=== PATIENT | female | born 1940 | race African-American/Black ===

== ENCOUNTER 2019-10-09 09:16 | Outpatient (CLI) | payer MEDICARE, OTHER, SELFPAY ==
--- NOTE | ~2019-10-09 | US_ITS ---
US right upper quadrant INDICATION: Hepatitis C PROCEDURE: Realtime right upper abdominal ultrasound. COMPARISON: No prior studies for comparison. FINDINGS: Pancreatic duct is mildly dilated measuring 2.4 mm. Liver echotexture is normal without fo linda mass or intrahepatic biliary dilatation. There is normal directional flow in the portal vein. There are gallstones. Common bile duct measures 5 mm. No sonographic March's sign. Automated expos ure control and iterative reconstruction technique were employed. IMPRESSION: 1: Cholelithiasis. 2: Mild pancreatic ductal dilation, nonspecific. Reviewed, dictated and finalized at location A. IST
[2019-10-09 10:37] LABS: Hematocrit 26.6 % (37.0-47.0); Mean Corpuscular HGB Conc 30.1 g/dl (32-36); Mean Corpuscular Hemoglobin 24.9 pg (26-34); Mean Corpuscular Volume 82.9 fl (80-100); Mean Platelet Volume 11.1 fl (7.4-10.4); Platelet Count Result 201 k/mm3 (150-375); Red Blood Count 3.21 M/mm3 (4.2-5.4); White Blood Count 5.6 K/mm3 (4.5-10.0)
[2019-10-09 10:54] LABS: INR 1.1; Prothrombin Time 13.9 Seconds (11.1-14.7)
[2019-10-09 11:02] LABS: Iron 31 ug/dL (37-170)
[2019-10-09 11:14] LABS: Hepatitis B Surface Antigen Negative (Negative); Percent Iron Saturation 15 % (20-50)
[2019-10-09 11:30] LABS: Alanine Aminotransferase 14 U/L (4-35); Albumin Level 3.7 g/dL (3.5-5.1); Alkaline Phosphatase 101 U/L (38-126); Aspartate Amino Transferase 30 U/L (14-36); Bilirubin,Total 0.4 mg/dL (0.2-1.3); Blood Urea Nitrogen 24 mg/dL (7-17); Carbon Dioxide 24 mmol/L (22-30); Chloride 95 mmol/L (98-107); Estimated Glomerular Filt Rate 10; Free T4 Free Thyroxine 1.22 ng/mL (0.78-2.19); Glucose 88 mg/dL (65-105); HAV RESULT Negative (Negative); Potassium 4.1 mmol/L (3.4-5.0); Sodium 136 mmol/L (137-145)
[2019-10-09 11:31] LABS: HIV 1/2 Ab P24 Ag Result Negative (Negative); Hepatitis B Surface Anti Res Negative
[2019-10-11 18:54] LABS: Hepatitis C RNA, Quant PCR <15 IU/mL
[2019-10-11 18:55] LABS: Hepatitis C Viral RNA PCR <15 IU/mL
[2019-10-12 20:08] LABS: Hepatitis B Core Ab Total Nonreactive (Nonreactive)
== END 2019-10-09 09:17 | disposition home or self-care (01) ==
PROVIDERS: PCP Internal Medicine; Visit Provider Internal Medicine
DX: B19.20 Unspecified viral hepatitis C without hepatic coma (principal); K80.20 Calculus of gallbladder without cholecystitis without obstruction; N18.6 End stage renal disease; K86.9 Disease of pancreas, unspecified
CPT/HCPCS: 36415; 76705; 80053; 82105; 82248; 82728; 83540; 83550; 84439; 84443; 85027; 85610; 86038; 86235; 86703; 86704; 86706; 86709; 87340; 87522; G0432

== ENCOUNTER 2019-10-11 09:39 | Outpatient (CLI) | payer MEDICARE, OTHER, SELFPAY ==
[2019-10-29 13:03] LABS: Fibrosis Score 0.24
[2019-10-29 13:04] LABS: Fibrosis Stage F0-F1
== END 2019-10-11 09:40 | disposition home or self-care (01) ==
PROVIDERS: PCP Internal Medicine
DX: B19.20 Unspecified viral hepatitis C without hepatic coma (principal)
CPT/HCPCS: 36415; 81596

== ENCOUNTER 2019-10-22 09:46 | Emergency (ER) | payer MEDICARE, OTHER, SELFPAY ==
--- NOTE | 2019-10-22 10:08 | ED.ABDPAIN ---
HPI - Abdominal Pain General Stated Complaint: NOSE BLEED Time Seen by Provider: 10/22/19 09:48 Source: patient and EMS Mode of arrival: EMS Limitations: no limitations History of Present Illness HPI narrative: Patient is a 79-year-old female who presents to emergency department for evaluation of epistaxis that began this morning has been having some rhinorrhea patient notes on arrival she has no pain denies dyspnea or other complaints denies any anticoagulant use patient on arrival notes that the bleeding has stopped and is resting comfortably in the room in no distress Related Data Home Medications Medication Instructions Recorded Confirmed B complex with C 20-folic acid 1 cap PO DAILY 07/10/19 07/10/19 [Mynephrocaps] aspirin 81 mg PO DAILY 07/10/19 07/10/19 calcitriol 0.25 mcg PO 3XW 07/10/19 07/10/19 calcium acetate(phosphat bind) 667 mg PO TID 07/10/19 07/10/19 carvedilol [Coreg] 6.25 mg PO BID 07/10/19 07/10/19 folic acid-B complex,C no.17 1 tablet PO DAILY 07/10/19 07/10/19 levothyroxine 100 mcg PO DAILY 07/10/19 07/10/19 loratadine [Claritin] 10 mg PO DAILY PRN 07/10/19 07/10/19 simvastatin 40 mg PO HS 07/10/19 07/10/19 Allergies Allergy/AdvReac Type Severity Reaction Status Date / Time codeine Allergy Unknown Unknown Verified 07/10/19 11:34 morphine AdvReac Unknown Itching Verified 07/10/19 11:34 Review of Systems Review of Systems: All systems reviewed & are unremarkable except as noted in HPI and below PMFSH Past Medical History Medical History Anemia Arthritis CAD (coronary artery disease) Cataract, right eye CHF (congestive heart failure) Dialysis patient Diverticulitis DM (diabetes mellitus) Fibroids GI bleed History of angina History of heart attack History of rectal polyps Hypercholesteremia Hypertension Hypothyroid Macular degeneration lt Personal history of kidney cancer Renal disease Ulcer Surgical History Surgical History History of appendectomy History of cataract surgery rt History of hysterectomy History of nephrectomy, left History of total bilateral knee replacement Hx of cardiac cath with stent placement Exam Narrative: Exam Narrative: GENERAL: Well-appearing, well-nourished, and in no acute distress. HEAD: Normocephalic, atraumatic. EYES: PERRLA and EOMI. ENT: Nares clear, patient with rhinorrhea with resolved epistaxis. Mucous membranes moist. Oropharynx without tonsillar hypertrophy exudate or other lesions. CHEST: Clear to auscultation. No respiratory distress. No wheezes rales or rhonchi HEART: Regular rate and rhythm. No murmur heard. SKIN: Warm, dry, no rash. NEURO: No focal deficits. Alert and oriented x3. Cranial nerves II through XII grossly intact PSYCH: Normal mood and affect. Procedures Epistaxis Control bilateral: Epistaxis Control Date: 10/22/19 Epistaxis Control Time: 10:11 Time Out Performed: Yes Nose Prepped With: oxymetazoline Direct Inspection: yes Clots Removed by: blowing nose Cautery Used: none Device Inserted: other Patient Tolerated Procedure: well Epistaxis Control Narrative: Q-tip was used to rub the mucous membranes without any bleeding occurring patient then had Afrin-soaked cotton balls placed in the nasal passages with resolution of epistaxis Course Course Emergency Course: Patient in the room in no distress aware of case findings treatment plan and diagnosis Consultations Consultation #1: Discussed case with director translational who will follow patient in clinic and would like the patient to be sent over for dialysis Date: 10/22/19 MDM - Abdominal Pain MDM Narrative Medical decision making narrative: Patient in the room in no distress felt appropriate for discharge to dialysis Discharge Plan Discharge Clinical Impression: Acute anterior epistaxis
[2019-10-22 10:21] VITALS: BP 144/76; PULSE 64; RESP 16; TEMP 36.6; O2SAT 99
[2019-10-22 10:35] VITALS: BP 136/75; PULSE 72; RESP 16; O2SAT 99
== END 2019-10-22 10:45 | disposition home or self-care (01) ==
PROVIDERS: Emergency Provider Emergency Medicine; PCP Internal Medicine
DX: R04.0 Epistaxis (principal); M19.90 Unspecified osteoarthritis, unspecified site; I25.10 Atherosclerotic heart disease of native coronary artery without angina pectoris; I50.9 Heart failure, unspecified; I11.0 Hypertensive heart disease with heart failure; I25.2 Old myocardial infarction; E11.22 Type 2 diabetes mellitus with diabetic chronic kidney disease; I13.2 Hypertensive heart and chronic kidney disease with heart failure and with stage 5 chronic kidney disease, or end stage renal disease; N18.6 End stage renal disease; E78.00 Pure hypercholesterolemia, unspecified; E03.9 Hypothyroidism, unspecified; H35.30 Unspecified macular degeneration; Z85.528 Personal history of other malignant neoplasm of kidney; Z98.41 Cataract extraction status, right eye; Z90.5 Acquired absence of kidney; Z96.653 Presence of artificial knee joint, bilateral; Z95.5 Presence of coronary angioplasty implant and graft; Z79.82 Long term (current) use of aspirin; Z99.2 Dependence on renal dialysis
CPT/HCPCS: 30901; 99283; A9270

== ENCOUNTER 2020-01-12 17:28 | Emergency (ER) | payer MEDICARE, OTHER, SELFPAY ==
[2020-01-12] VITALS (37 sets, daily range): BP systolic 95–136; BP diastolic 49–67; PULSE 70–97; RESP 13–26; TEMP 36.9; O2SAT 94–100
--- NOTE | ~2020-01-12 | CT_ITS ---
EXAMINATION: CT soft tissue neck wo con DATE: 01/12/2020 22:52 INDICATION: Sore throat. Neck mass. TECHNIQUE: Computed tomography (CT) of the neck was performed without intravenous contrast. Automated exposure control and iterative reconstruction technique were employed. The dose-length product was 5 64.41 mGy-cm. COMPARISON: Neck CT 08/18/2006 FINDINGS: There is mild emphysema. There are likely changes of right ocular lens replacement surgery. There is a mucous retention cyst versus polyp in right maxillary sinus. Right submandibular gland is enlarged with surrounding fat stranding. There are multiple sialoliths in right submandibular gland and the duct for right submandibular gland measuring up to 2.0 x 1.5 cm. There are changes of right h emithyroidectomy. There is a stent in right subclavian and brachiocephalic veins. There are no pathol ogically enlarged lymph nodes. There is moderate cervical spondylosis. IMPRESSION: 1. Multiple stones in right submandibular gland and the duct for right submandibular gland with siala denitis. Reviewed, dictated and finalized at location A. IMPRESSION: 1. Multiple stones in right submandibular gland and the duct for right submandi bular gland with sialadenitis.
--- NOTE | 2020-01-12 19:20 | ED.GENADULT ---
HPI - General Adult General Chief complaint: Unspecified Stated complaint: sore throat, sent from urgent care Time Seen by Provider: 01/12/20 19:03 History of Present Illness HPI narrative: Pain and swelling to the right side of the face and neck for about the past week. Getting worse. Causes pain with swallowing. Prescribed antibiotics by her PCP. No improvement. No fever. Related Data Home Medications Medication Instructions Recorded Confirmed B complex with C 20-folic acid 1 cap PO DAILY 07/10/19 07/10/19 [Mynephrocaps] aspirin 81 mg PO DAILY 07/10/19 07/10/19 calcitriol 0.25 mcg PO 3XW 07/10/19 07/10/19 carvedilol [Coreg] 6.25 mg PO BID 07/10/19 07/10/19 folic acid-B complex,C no.17 1 tablet PO DAILY 07/10/19 07/10/19 levothyroxine 100 mcg PO DAILY 07/10/19 07/10/19 calcium acetate PO 01/12/20 doxycycline hyclate 01/12/20 gabapentin 01/12/20 pravastatin 01/12/20 Allergies Allergy/AdvReac Type Severity Reaction Status Date / Time codeine Allergy Unknown Unknown Verified 01/12/20 18:25 morphine AdvReac Unknown Itching Verified 01/12/20 18:25 Review of Systems Review of Systems: All systems reviewed & are unremarkable except as noted in HPI and below Constitutional: Constitutional: Denies fever(s) and Denies weakness ENT: Reports sore throat Cardiovascular: Cardiovascular: Denies chest pain Respiratory: Respiratory: Denies dyspnea Gastrointestinal: Gastrointestinal: Denies nausea and Denies vomiting Integumentary/Breasts: Skin/Breast: Denies erythema and Denies rash PMFSH Past Medical History Medical History Anemia Arthritis CAD (coronary artery disease) Cataract, right eye CHF (congestive heart failure) Dialysis patient Diverticulitis DM (diabetes mellitus) Fibroids GI bleed History of angina History of heart attack History of rectal polyps Hypercholesteremia Hypertension Hypothyroid Macular degeneration lt Personal history of kidney cancer Renal disease Ulcer Surgical History Surgical History History of appendectomy History of cataract surgery rt History of hysterectomy History of nephrectomy, left History of total bilateral knee replacement Hx of cardiac cath with stent placement Social History Social History Gender identity (if verbalized by the patient): Female Exam Const: General: no acute distress and alert Orientation/consciousness: patient oriented x3 HENMT: Other: Solid mass to right anterior neck. Moderate tenderness. No erythema. Resp: Effort & Inspection: normal respiratory effort Auscultation: clear to auscultation bilaterally Cardio: Rate: regular rate Rhythm: regular rhythm Skin: General skin exam: normal color Rashes: no rashes Neuro: General: patient oriented x3 and moves all extremities Course Vital Signs Vital signs: Vital Signs Pulse Oximetry 97 01/12/20 17:40 Temperature 36.9 C 01/12/20 17:45 Pulse Rate 86 01/13/20 01:19 Respiratory Rate 17 01/13/20 01:19 Blood Pressure 123/68 01/13/20 01:19 Pulse Oximetry 99 01/13/20 01:19 Medical Decision Making MDM Narrative Medical decision making narrative: Multiple large sialoliths with sialadenitis. Unlikely infection, but I will have her continue the antibiotics incase this is playing a role. I think it is unlikely to resolve spontaneously. Unfortunately we have no ENT on-call. I contacted the individual on-call for her PCP. They will set up ENT follow-up. Differential Diagnosis Differential Diagnosis: dental abscess, cancer, sialolith, other Medical Records Medical records reviewed: Yes I reviewed the patient's medical records. Vital Signs Vital Signs: Vital Signs Pulse Oximetry 97 01/12/20 17:40 Temperature 36.9 C 01/12/20 17:45 Pulse Rate 86 01/13/20 01:19 Respirato
[2020-01-12 21:56] LABS: Basophils Percent Auto 0.3 % (0.2-1.2); Eosinophils Absolute Auto 0.2 K/mm3 (0-0.3); Eosinophils Percent Auto 3.1 % (0-4.4); Hematocrit 32.8 % (37.0-47.0); Hemoglobin 9.8 g/dL (12.0-15.0); Immature Granulocyte Absolute 0.03 K/mm3 (0.00-0.031); Immature Granulocyte Percent A 0.4 % (0-0.5); Lymphocytes Percent Auto 13.5 % (18.3-44.2); Mean Corpuscular HGB Conc 29.9 g/dl (32-36); Mean Corpuscular Hemoglobin 25.9 pg (26-34); Mean Corpuscular Volume 86.5 fl (80-100); Mean Platelet Volume 10.4 fl (7.4-10.4); Monocytes Absolute Auto 1.2 K/mm3 (0.1-0.6); Monocytes Percent Auto 16.2 % (2.6-8.5); Neutrophils Absolute Auto 4.9 K/mm3 (1.3-6.7); Neutrophils Percent Auto 66.5 % (45.5-73.1); Nucleated Red Blood Cells Perc 0.3 % (0.0-0.2); Platelet Count Result 183 k/mm3 (150-375); Red Blood Count 3.79 M/mm3 (4.2-5.4); Red Cell Distribution Width 17.1 % (11.5-14.5); White Blood Count 7.4 K/mm3 (4.5-10.0)
[2020-01-12 22:07] LABS: Blood Urea Nitrogen 18 mg/dL (7-17); Calcium 7.2 mg/dL (8.4-10.2); Carbon Dioxide 29 mmol/L (22-30); Chloride 100 mmol/L (98-107); Estimated CRCL calculation 11 ml/min; Estimated Glomerular Filt Rate 12; Glucose 92 mg/dL (65-105); Potassium 3.4 mmol/L (3.4-5.0); Sodium 136 mmol/L (137-145)
[2020-01-12 22:15] LABS: Anisocytosis 2+ (NORMAL); Hypochromasia 1+ (NORMAL); Platelet Estimate Adequate (Adequate)
[2020-01-13] MEDS: TRAMADOL HCL 50 MG TABLET PO (01:04)
[2020-01-13 01:19] VITALS: BP 123/68; PULSE 86; RESP 17; O2SAT 99
== END 2020-01-13 01:28 | disposition home or self-care (01) ==
PROVIDERS: Emergency Provider Emergency Medicine
DX: K11.20 Sialoadenitis, unspecified (principal); K11.5 Sialolithiasis; D64.9 Anemia, unspecified; M19.90 Unspecified osteoarthritis, unspecified site; I25.10 Atherosclerotic heart disease of native coronary artery without angina pectoris; I50.9 Heart failure, unspecified; E11.22 Type 2 diabetes mellitus with diabetic chronic kidney disease; I13.2 Hypertensive heart and chronic kidney disease with heart failure and with stage 5 chronic kidney disease, or end stage renal disease; N18.6 End stage renal disease; Z99.2 Dependence on renal dialysis; I25.2 Old myocardial infarction; E78.00 Pure hypercholesterolemia, unspecified; H35.30 Unspecified macular degeneration; E03.9 Hypothyroidism, unspecified; Z98.41 Cataract extraction status, right eye; Z96.653 Presence of artificial knee joint, bilateral; Z90.5 Acquired absence of kidney; Z95.5 Presence of coronary angioplasty implant and graft; Z79.82 Long term (current) use of aspirin
CPT/HCPCS: 36415; 70490; 80048; 85025; 87081; 87880; 99284; A9270

== ENCOUNTER 2020-06-03 08:07 | Emergency (ER) | payer MEDICARE, OTHER, SELFPAY ==
--- NOTE | ~2020-06-03 | XR_ITS ---
EXAMINATION: XR lumbar spine min 4V DATE: 06/03/2020 09:59 INDICATION: Low back pain. TECHNIQUE: 5 views of lumbar spine were obtained. COMPARISON: Lumbar spine radiographs 01/07/2008 FINDINGS: There is 5 mm anterolisthesis of L4 on L5 at 3 mm retrolisthesis of L2 on L3. There is 8 de grees dextrocurvature of lumbar spine. There is severely decreased disc height at L1-L2 and moderatel y decreased disc height at L4-L5. There is multilevel severe facet joint osteoarthritis. There are br idging endplate osteophytes at multiple levels in the spine, consistent with diffuse idiopathic skele andre hyperostosis (DISH). There are surgical clips in left abdomen. IMPRESSION: 1. Severe lumbar spondylosis, worsened from 01/07/2008. 2. DISH. Reviewed, dictated and finalized at location A.
[2020-06-03 08:06] VITALS: BP 150/73; PULSE 76; RESP 10; TEMP 36.5; O2SAT 99
--- NOTE | 2020-06-03 10:07 | ED.GENADULT ---
HPI - General Adult General Chief complaint: Extremity Injury, Lower Stated complaint: PAIN DOWN BOTH LEGS Time Seen by Provider: 06/03/20 08:44 Source: patient Mode of arrival: ambulatory Limitations: no limitations History of Present Illness HPI narrative: Patient is a 79-year-old female who presents to emergency department for evaluation of low back pain radiating to the bilateral thighs has been present now for roughly 5 days patient denies injury or trauma. Patient notes pain in the bilateral buttocks. Patient denies similar occurrence or other complaints. Patient presents in no distress has been taking tramadol with some improvement. Related Data Home Medications Medication Instructions Recorded Confirmed B complex with C 20-folic acid 1 cap PO DAILY 07/10/19 07/10/19 [Mynephrocaps] aspirin 81 mg PO DAILY 07/10/19 07/10/19 calcitriol 0.25 mcg PO 3XW 07/10/19 07/10/19 carvedilol [Coreg] 6.25 mg PO BID 07/10/19 07/10/19 folic acid-B complex,C no.17 1 tablet PO DAILY 07/10/19 07/10/19 levothyroxine 100 mcg PO DAILY 07/10/19 07/10/19 calcium acetate PO 01/12/20 doxycycline hyclate 01/12/20 gabapentin 01/12/20 pravastatin 01/12/20 Allergies Allergy/AdvReac Type Severity Reaction Status Date / Time codeine Allergy Unknown Unknown Verified 06/03/20 09:54 morphine AdvReac Unknown Itching Verified 06/03/20 09:54 Review of Systems Review of Systems: All systems reviewed & are unremarkable except as noted in HPI and below PMFSH Past Medical History Medical History (Updated 06/03/20 @ 10:35 by Eugene Greenberg PA-C) Anemia Arthritis CAD (coronary artery disease) Cataract, right eye CHF (congestive heart failure) Dialysis patient Diverticulitis DM (diabetes mellitus) Fibroids GI bleed History of angina History of heart attack History of rectal polyps Hypercholesteremia Hypertension Hypothyroid Macular degeneration lt Personal history of kidney cancer Renal disease Ulcer Surgical History Surgical History History of appendectomy History of cataract surgery rt History of hysterectomy History of nephrectomy, left History of total bilateral knee replacement Hx of cardiac cath with stent placement Social History Social History Gender identity (if verbalized by the patient): Female Exam Narrative: Exam Narrative: GENERAL: Well-appearing, obese, and in no acute distress. HEAD: Normocephalic, atraumatic. EYES: PERRLA and EOMI. ENT: Nares clear, no rhinorrhea or epistaxis. Mucous membranes moist. CHEST: Clear to auscultation. No respiratory distress. No wheezes rales or rhonchi HEART: Regular rate and rhythm. No murmur heard. Normal peripheral pulses. ABDOMEN: Soft, nontender, nondistended EXTREMITIES: Normal range of motion. 2+ edema to the lower extremities. Tenderness over the bilateral SI joints no midline lumbar tenderness no deformities noted SKIN: Warm, dry, no rash. NEURO: No focal deficits. Alert and oriented x3. Cranial nerves II through XII grossly intact. Motor and sensory intact and symmetrical in the extremities PSYCH: Normal mood and affect. Course Course Emergency Course: Patient will be referred back to primary care for what is likely radicular lumbar pain that is felt appropriate for outpatient reevaluation patient will be given medications in the meantime to take for her discomfort while she waits to set up her primary care follow-up Vital Signs Vital signs: Vital Signs Temperature 97.7 F 06/03/20 08:06 Pulse Rate 76 06/03/20 08:06 Respiratory Rate 10 L 06/03/20 08:06 Blood Pressure 150/73 H 06/03/20 08:06 Pulse Oximetry 99 06/03/20 08:06 Temperature 97.7 F 06/03/20 08:06 Pulse Rate 76 06/03/20 08:06 Respiratory Rate 10 L 06/03/20 08:06 Blood Pressure 150/73 H 06/03/20 08:06 Pulse Oximetry 99 06/03/20 08:06
[2020-06-03] MEDS: ACETAMINOPHEN 500 MG TABLET 1000 MG PO (10:36)
[2020-06-03] MEDS: LIDOCAINE 5% PATCH 1 PATCH TRANSDERM (10:37)
[2020-06-03 11:30] VITALS: BP 120/62; PULSE 77; RESP 18; RESP 20; O2SAT 99
[2020-06-03 11:32] VITALS: BP 120/62; PULSE 77; RESP 18; O2SAT 99
== END 2020-06-03 11:33 | disposition home or self-care (01) ==
PROVIDERS: Emergency Provider Emergency Medicine; PCP Internal Medicine
DX: M54.16 Radiculopathy, lumbar region (principal); Z86.2 Personal history of diseases of the blood and blood-forming organs and certain disorders involving the immune mechanism; I25.10 Atherosclerotic heart disease of native coronary artery without angina pectoris; I50.9 Heart failure, unspecified; E11.9 Type 2 diabetes mellitus without complications; I25.2 Old myocardial infarction; Z87.19 Personal history of other diseases of the digestive system; E78.00 Pure hypercholesterolemia, unspecified; I11.0 Hypertensive heart disease with heart failure; E03.9 Hypothyroidism, unspecified; Z85.528 Personal history of other malignant neoplasm of kidney; H35.30 Unspecified macular degeneration; N28.9 Disorder of kidney and ureter, unspecified; Z90.5 Acquired absence of kidney; Z98.41 Cataract extraction status, right eye; Z96.653 Presence of artificial knee joint, bilateral; Z79.82 Long term (current) use of aspirin
CPT/HCPCS: 72110; 99283; A9270

== ENCOUNTER 2020-08-25 06:36 | Emergency (ER) | payer MEDICARE, OTHER, SELFPAY ==
[2020-08-25] VITALS (10 sets, daily range): BP systolic 157–192; BP diastolic 64–70; PULSE 68–72; RESP 12–18; TEMP 36.3; O2SAT 99–100
--- NOTE | ~2020-08-25 | CT_ITS ---
EXAMINATION: CT lumbar spine wo con DATE: 08/25/2020 07:39 INDICATION: Low back pain after fall TECHNIQUE: Computed tomography (CT) of the lumbar spine was performed without intravenous contrast. T he dose-length product was 1258.10 mGy-cm. Automated exposure control and iterative reconstruction te jacques were employed. COMPARISON: None FINDINGS: Partial fusion at L1-2. There is disc narrowing at all lumbar levels with multilevel vacuum phenomenon. There is advanced multilevel facet hypertrophy. There is atherosclerosis of the aorta an d mesenteric vessels. There is multilevel neural foraminal narrowing. No acute sacral fracture identi fied. No acute fracture of the lumbar spine. IMPRESSION: 1. No acute fracture. 2: Severe lumbar spondylosis with multilevel neural foraminal narrowing. Reviewed, dictated and finalized at location A. 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
--- NOTE | ~2020-08-25 | CT_ITS ---
EXAMINATION: CT pelvis wo con DATE: 08/25/2020 07:39 INDICATION: Status post fall. Pelvic pain. TECHNIQUE: Computed tomography (CT) of the pelvis was performed without intravenous contrast. The dos e-length product was 779.37 mGy-cm. Automated exposure control and iterative reconstruction technique were employed. COMPARISON: None FINDINGS: Pelvic rings are intact. There is moderate lower lumbar spondylosis. There are degenerative changes of the sacroiliac joints and hips. No acute fracture or traumatic malalignment. There is ext ensive vascular calcification. There is abnormal soft tissue and gas involving the posterior soft tis sues posterior to the rectum. Ulcer/infection cannot be excluded. These findings are best seen on ser ies 4 images 58-72. IMPRESSION: 1. No acute fracture. 2: Abnormal subcutaneous soft tissue posterior to the rectum containing heterogeneous high density ma terial and gas. Consider decubitus ulcer/infection. Correlate clinically. Acute hematoma is also cons ideration. Reviewed, dictated and finalized at location A. 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 No acute fracture. 2: Abnormal subcutaneous soft tissue posterior to the rectum containing heterog eneous high density material and gas. Consider decubitus ulcer/infection. Corre late clinically. Acute hematoma is also consideration.
--- NOTE | 2020-08-25 07:10 | PC.NURSE ---
Report to ISRAEL Collazo, to continue care.
--- NOTE | 2020-08-25 07:11 | ED.FALL ---
HPI - Fall General Chief Complaint: Fall Stated Complaint: FALL/SUNDAY Time Seen by Provider: 08/25/20 07:05 History of Present Illness HPI Narrative: 80 yo female with multiple medical problems presents to the ED for lower back pain. She reports that she had a fall 2 days ago when trying to get off of the toilet. She called EMS and required a lift assist and was having some pain in the low back and buttock at that time, but did not want transport. Since then the pain has gotten worse and she is not able to et herself up from sitting. The pain in primarily in the buttocks bilaterally. Radiates down the back of the thighs. No weakness. She reports chronic BLE numbness, which is unchanged. She did not hit her head. Related Data Home Medications Medication Instructions Recorded Confirmed B complex with C 20-folic acid 1 cap PO DAILY 07/10/19 07/10/19 [Mynephrocaps] aspirin 81 mg PO DAILY 07/10/19 07/10/19 calcitriol 0.25 mcg PO 3XW 07/10/19 07/10/19 carvedilol [Coreg] 6.25 mg PO BID 07/10/19 07/10/19 folic acid-B complex,C no.17 1 tablet PO DAILY 07/10/19 07/10/19 levothyroxine 100 mcg PO DAILY 07/10/19 07/10/19 calcium acetate PO 01/12/20 doxycycline hyclate 01/12/20 gabapentin 01/12/20 pravastatin 01/12/20 Allergies Allergy/AdvReac Type Severity Reaction Status Date / Time morphine AdvReac Unknown Itching Verified 08/25/20 06:48 Review of Systems Review of Systems: All systems reviewed & are unremarkable except as noted in HPI and below Constitutional: Constitutional: Denies fever(s) and Denies weakness Cardiovascular: Cardiovascular: Denies chest pain Respiratory: Respiratory: Denies dyspnea Gastrointestinal: Gastrointestinal: Denies abdominal pain, Denies diarrhea, Denies nausea and Denies vomiting Genitourinary: Genitourinary: Denies hematuria and Denies dysuria Musculoskeletal: Musculoskeletal: Reports back pain Neurologic: Denies confusion, Denies dizziness, Denies headache(s), Reports numbness and Denies weakness PMF Past Medical History Medical History Anemia Arthritis CAD (coronary artery disease) Cataract, right eye CHF (congestive heart failure) Dialysis patient Diverticulitis DM (diabetes mellitus) Fibroids GI bleed History of angina History of heart attack History of rectal polyps Hypercholesteremia Hypertension Hypothyroid Macular degeneration lt Personal history of kidney cancer Renal disease Ulcer Surgical History Surgical History History of appendectomy History of cataract surgery rt History of hysterectomy History of nephrectomy, left History of total bilateral knee replacement Hx of cardiac cath with stent placement Social History Social History Gender identity (if verbalized by the patient): Female Exam Const: General: no acute distress and alert Orientation/consciousness: patient oriented x3 HENMT: Head: normal to inspection, no contusions and no lacerations Neck: Neck: normal visual inspection Resp: Effort & Inspection: normal respiratory effort Auscultation: clear to auscultation bilaterally Cardio: Rate: regular rate Rhythm: regular rhythm GI: GI Palp: Yes Soft to palpation and No Tenderness to palpation present (GI) Back/Spine/Pelvis: Other: Exam limited due to positioning Skin: General skin exam: normal color Wounds: no wounds Neuro: General: patient oriented x3, moves all extremities, no focal motor deficits and CN's II-XI intact bilaterally Speech: normal speech Extrem: General: normal to inspection and no edema Course Vital Signs Vital signs: Vital Signs Temperature 36.3 C L 08/25/20 06:38 Pulse Rate 69 08/25/20 06:38 Respiratory Rate 18 08/25/20 06:38 Blood Pressure 165/69 H 08/25/20 06:38 Pulse Oximetry 100 08/25/20 06:38 Temper
[2020-08-25] MEDS: HYDROcodone/acetaminophen (*CRX) 5-325 MG TABLET 1 TAB PO (07:57)
--- NOTE | 2020-08-25 10:06 | PCCCNOTE ---
Patient and daughter assisting placement for rehab. Initially would accept any who were accepting patient at this time. [facility] and [facility] in [place] able to accept but patient and daughter refused both places. Clinicals and demographics sent to [facility]
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
== END 2020-08-25 10:34 | disposition home or self-care (01) ==
PROVIDERS: Emergency Provider Emergency Medicine; PCP Internal Medicine
DX: S30.0XXA Contusion of lower back and pelvis, initial encounter (principal); M19.90 Unspecified osteoarthritis, unspecified site; I25.10 Atherosclerotic heart disease of native coronary artery without angina pectoris; I50.9 Heart failure, unspecified; E11.9 Type 2 diabetes mellitus without complications; I25.2 Old myocardial infarction; E78.00 Pure hypercholesterolemia, unspecified; I11.0 Hypertensive heart disease with heart failure; E03.9 Hypothyroidism, unspecified; H35.30 Unspecified macular degeneration; Z85.528 Personal history of other malignant neoplasm of kidney; Z99.2 Dependence on renal dialysis; Z79.82 Long term (current) use of aspirin; Z98.41 Cataract extraction status, right eye; Z90.5 Acquired absence of kidney; Z96.653 Presence of artificial knee joint, bilateral; Z95.5 Presence of coronary angioplasty implant and graft; W18.11XA Fall from or off toilet without subsequent striking against object, initial encounter
CPT/HCPCS: 72131; 72192; 99284; A9270

== ENCOUNTER 2021-07-03 16:11 | Inpatient (IN) | payer MEDICARE, OTHER, SELFPAY ==
[2021-07-03] VITALS (31 sets, daily range): BP systolic 103–164; BP diastolic 44–75; PULSE 58–78; RESP 13–33; TEMP 36.1–36.4; O2SAT 100; BMI 41.0
--- NOTE | 2021-07-03 16:24 | ED.GENADULT ---
HPI - General Adult General Chief complaint: GI Bleed Stated complaint: rectal bleeding Source: RN notes reviewed History of Present Illness HPI narrative: Patient presents emergency department from home for rectal bleeding. Patient states she had 2 episodes today of maroon rectal bleeding with clots. She states that with this she has had no fevers or chills no weakness no abdominal pain nausea vomiting or any other symptoms states she is on any blood thinners except when she receives with dialysis and she receives dialysis Sunday and Sunday by Dr. Mathews with last dialysis on Sunday states she did have 1 episode of rectal bleeding before in past and was admitted to the hospital with a blood transfusion Related Data Home Medications Medication Instructions Recorded Confirmed B complex with C 20-folic acid 1 cap PO DAILY 07/10/19 07/10/19 [Mynephrocaps] aspirin 81 mg PO DAILY 07/10/19 07/10/19 calcitriol 0.25 mcg PO 3XW 07/10/19 07/10/19 carvedilol [Coreg] 6.25 mg PO BID 07/10/19 07/10/19 folic acid-B complex,C no.17 1 tablet PO DAILY 07/10/19 07/10/19 levothyroxine 100 mcg PO DAILY 07/10/19 07/10/19 calcium acetate PO 01/12/20 doxycycline hyclate 01/12/20 gabapentin 01/12/20 pravastatin 01/12/20 Allergies Allergy/AdvReac Type Severity Reaction Status Date / Time morphine AdvReac Unknown Itching Verified 07/03/21 16:53 Review of Systems Review of Systems: Gen.: Denies fevers or chills ENT: Denies congestion Respiratory: Denies shortness of breath or cough CV: Denies chest pain or palpitations GI: D see HPI reports chronic renal failure dialysis Musculoskeletal: Denies back pain or muscle pain Neuro: Denies numbness, tingling, weakness or focal weakness Skin: Denies rash Except as documented, all other systems reviewed and negative [facility] Past Medical History Medical History (Updated 07/03/21 @ 19:19 by Antwan Betancourt DO) Anemia Arthritis CAD (coronary artery disease) Cataract, right eye CHF (congestive heart failure) Dialysis patient Diverticulitis DM (diabetes mellitus) Fibroids GI bleed History of angina History of heart attack History of rectal polyps Hypercholesteremia Hypertension Hypothyroid Macular degeneration lt Personal history of kidney cancer Renal disease Ulcer Surgical History Surgical History History of appendectomy History of cataract surgery rt History of hysterectomy History of nephrectomy, left History of total bilateral knee replacement Hx of cardiac cath with stent placement Social History Social History (Updated 07/03/21 @ 16:25 by Antwan Betancourt DO) Smoking status: Never smoker Gender identity (if verbalized by the patient): Female Exam Narrative: APPEARANCE: No acute distress, nontoxic, resting in bed EYES: EOMI HEENT: Normocephalic, atraumatic, OMM RESPIRATORY: No respiratory distress Clear to auscultation bilaterally with no rhonchi wheezing or rales. CARDIOVASCULAR: Regular rate and rhythm without murmurs rubs or gallops. ABDOMINAL: Soft, nontender, nondistended, no rebound or guarding Rectal: Large amount of dark maroon blood with clots in rectum and rectal vault Stage IV sacral decubitus ulcer MUSCULOSKELETAl: Moves all extremities. No clubbing, cyanosis or edema. NEURO: Awake and alert. Following commands, speech normal, no focal deficits SKIN:: Warm, dry. No rashes lesions or abrasions PSYCHIATRIC: Normal affect/mood, Course Course Emergency Course: Patient states she is currently being treated for sacral decubitus ulcer by wound care Patient with large bloody bowel movement in the ED Reviewed old records Discussed with Dr. Vitale presentation work-up agrees with consult at this time Discussed with AMANDEEP Schneider for Dr. Little presentation work-up agrees with admission at this time Discussed with patient and family results of workup and diagnosis. Discus
[2021-07-03 17:28] LABS: Basophils Percent Auto 0.5 % (0.2-1.2); Eosinophils Absolute Auto 0.2 K/mm3 (0-0.3); Eosinophils Percent Auto 3.9 % (0-4.4); Hematocrit 32.2 % (37.0-47.0); Hemoglobin 9.9 g/dL (12.0-15.0); Immature Granulocyte Absolute 0.02 K/mm3 (0.00-0.031); Immature Granulocyte Percent A 0.3 % (0-0.5); Lymphocytes Absolute Auto 1.18 K/mm3 (0.9-3.2); Mean Corpuscular HGB Conc 30.7 g/dl (32-36); Mean Corpuscular Hemoglobin 27.2 pg (26-34); Mean Corpuscular Volume 88.5 fl (80-100); Mean Platelet Volume 11.3 fl (7.4-10.4); Monocytes Absolute Auto 0.8 K/mm3 (0.1-0.6); Monocytes Percent Auto 13.6 % (2.6-8.5); Neutrophils Absolute Auto 3.6 K/mm3 (1.3-6.7); Neutrophils Percent Auto 61.7 % (45.5-73.1); Nucleated Red Blood Cells Perc 0.3 % (0.0-0.2); Platelet Count Result 168 k/mm3 (150-375); Red Blood Count 3.64 M/mm3 (4.2-5.4); Red Cell Distribution Width 16.4 % (11.5-14.5); White Blood Count 5.9 K/mm3 (4.5-10.0)
[2021-07-03 17:33] LABS: INR 1.2; Partial Thromboplastin Time 30.3 SECONDS (22.3-36.8); Prothrombin Time 14.6 Seconds (11.1-14.7)
[2021-07-03 17:37] LABS: Alanine Aminotransferase 12 U/L (4-35); Albumin Level 3.8 g/dL (3.5-5.1); Alkaline Phosphatase 95 U/L (38-126); Anion Gap 13 mmol/L (8-16); Aspartate Amino Transferase 28 U/L (14-36); Bilirubin,Total 0.4 mg/dL (0.2-1.3); Blood Urea Nitrogen 50 mg/dL (7-17); Calcium 6.9 mg/dL (8.4-10.2); Carbon Dioxide 27 mmol/L (22-30); Chloride 99 mmol/L (98-107); Estimated CRCL calculation 7 ml/min; Estimated Glomerular Filt Rate 6; Glucose 117 mg/dL (65-110); Potassium 4.8 mmol/L (3.4-5.0); Sodium 139 mmol/L (137-145)
[2021-07-03 18:14] LABS: Lactic Acid Reflex 1.1 mmol/L (0.7-2.1)
--- NOTE | 2021-07-03 19:16 | PC.NURSE ---
Addendum entered by Mara Banda RN 07/03/21 19:18: Right upper arm dialysis graft. MWF schedule. +thrill. +bruit. Original Note: Pt reports started having rectal bleeding dark red blood approx. 0300. Lives at [facility]. Reports hx of blood transfusion. c/o chronic back pain. Uses a walker and wheelchair at facility.
--- NOTE | 2021-07-03 20:00 | PM.IMHP ---
H&P: HPI History of Present Illness Date/Time: 07/03/21 20:00 Chief Complaint: Rectal bleed. Narrative: This is an 80 year old female past medical history significant for hypertension, coronary artery disease, end-stage renal disease on hemodialysis Sunday and Fridays, congestive heart failure, diabetes mellitus, diverticulosis, arthritis, patient resides at [facility]. Patient presented today to the emergency room after she had an episode of rectal bleed in the morning when she woke up noticed red blood in the bed padding apparently patient went to [facility] and had another episode while there of rectal bleed EMS was called and patient was brought to the emergency room. The time of my visit patient was still having rectal bleed however patient denied any lightheadedness, dizziness or shortness of breath ,chest pain, fatigue ,syncope or near syncope, no palpitations, no fevers, no chills, no rigors, no cough, no sputum production, no nausea, no vomiting ,no abdominal pain, no hematemesis, no melena, no weight loss. S states that she has been her usual state of health. Preliminary workup initial hemoglobin of 9.8 and hematocrit of 32.8, creatinine 7.4, BUN 50. Decision has been made to admit the patient for further evaluation management and treatment. Review of Systems Review of Systems: Rectal bleed Constitutional: Constitutional: Denies body ache(s), Denies chills, Denies fatigue, Denies fever(s), Denies lethargy, Denies poor appetite and Denies weakness Comments: No weight loss. Eyes: Eyes: Denies change in vision ENT: Denies dysphagia, Denies epistaxis, Denies nasal congestion, Denies nasal discharge, Denies nasal obstruction and Denies odynophagia Cardiovascular: Cardiovascular: Reports pedal edema, Denies irregular heart rhythm, Reports leg edema, Denies lightheadedness, Denies radiating jaw, neck or arm pain, Denies palpitations, Denies dyspnea, Denies dyspnea on exertion and Denies orthopnea Respiratory: Respiratory: Denies change in phlegm color, Denies cough, Denies excessive phlegm production and Denies dyspnea Gastrointestinal: Gastrointestinal: Denies melena, Reports hematochezia, Denies coffee ground emesis, Denies dyspepsia, Denies heartburn, Denies nausea and Denies vomiting Genitourinary: Comments: States that does not make much urine Musculoskeletal: Musculoskeletal: Reports back pain and Reports limited range of motion Integumentary/Breasts: Skin/Breast: Denies rash Neurologic: Denies vertigo, Denies dizziness, Denies syncope, Denies focal weakness and Denies Sensory deficit (Neuro) Psychiatric: Psychiatric: Reports no additional psychiatric complaints and Reports as per HPI Endocrine: Endocrine: Reports no additional endocrine complaints and Reports as per HPI Hematologic/Lymphatic: Hematologic/Lymphatic: Reports no additional hematologic/lymphatic complaints and Reports as per HPI Allergic/Immunologic: Allergic/Immunologic: Reports no additional allergic/immunologic complaints and Reports as per HPI PMFSH Past Medical History Medical History (Updated 07/04/21 @ 02:38 by Royal Talamantes MD) Anemia Arthritis CAD (coronary artery disease) Cataract, right eye CHF (congestive heart failure) Dialysis patient Diverticulitis DM (diabetes mellitus) Fibroids GI bleed History of angina History of heart attack History of rectal polyps Hypercholesteremia Hypertension Hypothyroid Macular degeneration lt Personal history of kidney cancer Renal disease Ulcer Surgical History Surgical History History of appendectomy History of cataract surgery rt History of hysterectomy History of nephrectomy, left History of total bilateral knee replacement Hx of cardiac cath with stent placement Family History Family History (Updated 07/03/21 @ 22:28 by Alix Silverman RN) Mother Heart problem Diabetes mellitus Social H
--- NOTE | 2021-07-03 20:33 | PC.NURSE ---
SBAR faxe to 3 Med/surg. Son in room and updated on plan of care. pt to 321-2.
--- NOTE | 2021-07-03 21:07 | PC.NURSE ---
Pt had large dark red bm, with gross blood and clots present. pt required assist x 2 to roll over in bed for gina care, yet pt lives in [facility] living at present. Pt also has +2 pitting edema to ble with generalized weakness, dry, flaky skin to lower legs.
[2021-07-03 22:10] LABS: Hematocrit 28.6 % (37.0-47.0)
[2021-07-04] VITALS (9 sets, daily range): BP systolic 146–155; BP diastolic 55–59; PULSE 64–116; RESP 16–18; TEMP 36.1–37.1; O2SAT 100; BMI 41.0
--- NOTE | 2021-07-04 03:17 | ADMGEN ---
This patient, Aleah Dougherty, was admitted to [facility] Surg Room 321-02. Patient/family oriented to hospital policies and general routines including ID bracelet, bed and alarms, visiting hours, pain management, procedures, bathroom and other care routines, personal items, smoking policy, room service/diet, and visiting hours. Information on how to activate the Rapid Response Team has been discussed. Patient/Family are encouraged to report perceived risks to care and to ask questions if they do not understand what they are told or what they should do.
[2021-07-04 07:30] LABS: Basophils Percent Auto 0.6 % (0.2-1.2); Eosinophils Absolute Auto 0.2 K/mm3 (0-0.3); Eosinophils Percent Auto 4.9 % (0-4.4); Hemoglobin 8.4 g/dL (12.0-15.0); Immature Granulocyte Absolute 0.01 K/mm3 (0.00-0.031); Immature Granulocyte Percent A 0.2 % (0-0.5); Lymphocytes Absolute Auto 0.95 K/mm3 (0.9-3.2); Lymphocytes Percent Auto 20.4 % (18.3-44.2); Mean Corpuscular HGB Conc 31.1 g/dl (32-36); Mean Corpuscular Hemoglobin 26.8 pg (26-34); Mean Platelet Volume 11.7 fl (7.4-10.4); Monocytes Absolute Auto 0.9 K/mm3 (0.1-0.6); Monocytes Percent Auto 19.5 % (2.6-8.5); Neutrophils Absolute Auto 2.5 K/mm3 (1.3-6.7); Neutrophils Percent Auto 54.4 % (45.5-73.1); Nucleated Red Blood Cells Perc 0.4 % (0.0-0.2); Platelet Count Result 157 k/mm3 (150-375); Red Blood Count 3.14 M/mm3 (4.2-5.4); Red Cell Distribution Width 16.1 % (11.5-14.5); White Blood Count 4.7 K/mm3 (4.5-10.0)
[2021-07-04 07:32] LABS: Anion Gap 12 mmol/L (8-16); Blood Urea Nitrogen 55 mg/dL (7-17); Calcium 6.5 mg/dL (8.4-10.2); Carbon Dioxide 24 mmol/L (22-30); Chloride 100 mmol/L (98-107); Estimated CRCL calculation 6 ml/min; Estimated Glomerular Filt Rate 6; Glucose 81 mg/dL (65-110); Potassium 5.1 mmol/L (3.4-5.0); Sodium 136 mmol/L (137-145)
[2021-07-04 09:07] LABS: Hematocrit 28.9 % (37.0-47.0)
--- NOTE | 2021-07-04 09:23 | PC.NURSE ---
Contacted Ben Vaughn for medication list for pt, awaiting fax for pt medications. Message left with Delia for [facility] [phone], awaiting fax and call back.
--- NOTE | 2021-07-04 09:27 | PC.NURSE ---
RAHEEL Pierson regarding medication list.
--- NOTE | 2021-07-04 09:33 | PC.NURSE ---
CAlled Aj to confirmed medication, Aj Magallanes faxing medication list to hospital, awaiting fax.
--- NOTE | 2021-07-04 13:39 | PCNSR ---
On 07/04/21, the student, Meliza Velasco, provided care and completed [facility] documentation on this patient. I have reviewed the student's documentation and agree with the findings.
--- NOTE | 2021-07-04 14:07 | PC.NURSE ---
MD Hsaeeb Mathews office called to confirm consult. Informed office pt normally has dialysis MWF at [facility] in [facility]. Awaiting call back.
[2021-07-04] MEDS: ACETAMINOPHEN 325 MG TABLET 650 MG PO (14:19)
--- NOTE | 2021-07-04 14:27 | PM.IMPN ---
Progress Note: A&P Assessment and Plan (1) GI bleed: Code(s): K92.2 - Gastrointestinal hemorrhage, unspecified Status: Acute Assessment and Plan: Hgb 10.6 Transfuse if <7 GI consulted Supportive care Monitor H/H q 6 (2) Anemia: Code(s): D64.9 - Anemia, unspecified Status: Acute Assessment and Plan: Likely to be anemia of chronic disease as patient with chronic kidney disease Acute on chronic Continue to monitor (3) Chronic renal failure: Code(s): N18.9 - Chronic kidney disease, unspecified Status: Acute Assessment and Plan: End-stage renal disease on hemodialysis Sunday as per Dr. Mathews Cr 7.8 Avoid nephrotoxins Renally dose all meds Nephrology consulted Monitor renal panel (4) CAD (coronary artery disease): Code(s): I25.10 - Atherosclerotic heart disease of [place] coronary artery without angina pectoris Status: Acute Assessment and Plan: Stable Continue to monitor (5) Hypertension: Code(s): I10 - Essential (primary) hypertension Status: Acute Assessment and Plan: Stable Holding meds due to GI acute bleed Monitor (6) Arthritis: Code(s): M19.90 - Unspecified osteoarthritis, unspecified site Status: Acute Assessment and Plan: Tylenol as needed (7) Pressure injury of coccygeal region, stage 3: Code(s): L89.153 - Pressure ulcer of sacral region, stage 3 Status: Acute Assessment and Plan: Wound Care consulted Followed outpatient at [facility] wound center TID for dressing changes Continue supportive care Subjective Date/time seen: 07/04/21 14:27 Interval history: Pt seen this a.m.; labs, vs reviewed; no acute events overnight; continues with bloody stoolsand diagnostic Review of Systems Review of Systems: All systems reviewed & are unremarkable except as noted in HPI and below Exam Const: General: no acute distress, alert and awake Orientation/consciousness: patient oriented x3 HENMT: Head: normocephalic and atraumatic Ears: hearing grossly normal bilaterally and external ears normal Face and sinus: face symmetric Mouth: Yes Normal oral and palatal mucosa present Eyes: EOM: EOMs intact bilaterally Neck: Neck: full ROM, trachea midline and no JVD Resp: Effort & Inspection: normal respiratory effort Auscultation: clear to auscultation bilaterally Cardio: Jugular venous distension: no JVD Rate: regular rate Rhythm: regular rhythm Heart sounds: S1 normal heart sound present and S2 normal heart sound present GI: GI Palp: Yes Soft to palpation Percussion: Yes normal to percussion Auscultation: normal bowel sounds : General: Yes no CVA tenderness Back/Spine/Pelvis: Back: no CVA tenderness Skin: General skin exam: normal color Rashes: no rashes Neuro: General: patient oriented x3 Speech: normal speech Extrem: General: other (Chronic vascular changes noted; moves all extremities ) Psych: Appearance: grossly normal Affect: normal affect Judgement: Good judgement present (Psych) Objective Data Vital Signs Vital Signs: Vital Signs - 24 hr 07/03/21 16:40 07/03/21 16:45 07/03/21 16:49 Temperature 36.4 C Pulse Rate 76 76 75 Respiratory Rate 17 23 H 17 Blood Pressure 156/63 H Pulse Oximetry 100 07/03/21 17:00 07/03/21 17:16 07/03/21 17:30 Temperature Pulse Rate 74 62 63 Respiratory Rate 17 16 13 Blood Pressure Pulse Oximetry 07/03/21 17:48 07/03/21 17:59 07/03/21 18:00 Temperature Pulse Rate 66 60 58 L Respiratory Rate 19 19 18 Blood Pressure 154/73 H Pulse Oximetry 07/03/21 18:01 07/03/21 18:18 07/03/21 18:31 Temperature Pulse Rate 73 67 58 L Respiratory Rate 18 15 17 Blood Pressure 162/64 H 120/74 Pulse Oximetry 07/03/21 18:32 07/03/21 18:45 07/03/21 19:00 Temperature Pulse Rate 60 64 65 Respiratory Rate 19 20 20 Blood Pressure Pulse Oximetry 1
[2021-07-04 15:18] LABS: Hematocrit 28.1 % (37.0-47.0); Hemoglobin 8.6 g/dL (12.0-15.0)
--- NOTE | 2021-07-04 15:53 | WPDGICN ---
Assessment and Plan Assessment and plan (1) Rectal bleeding: Code(s): K62.5 - Hemorrhage of anus and rectum Status: Acute Assessment and Plan: hemodynamically stable but still with rectal bleeding 2018 with last colonoscopy when she presented with lower GIB and found to have diverticulosis and hemorroids- most likely again cause of bleeding, she is agreeable to have a colonoscopy tomorrow monitor h/h (2) ESRD (end stage renal disease) on dialysis: Code(s): N18.6 - End stage renal disease; Z99.2 - Dependence on renal dialysis Status: Inactive Assessment and Plan: on dialysis by nephrology (3) Chronic anemia: Code(s): D64.9 - Anemia, unspecified Status: Acute Assessment and Plan: aocd, renal disease now with bleeding coninue to monitor (4) Hypertension: Code(s): I10 - Essential (primary) hypertension Status: Acute (5) CAD (coronary artery disease): Code(s): I25.10 - Atherosclerotic heart disease of [place] coronary artery without angina pectoris Status: Acute (6) History of GI diverticular bleed: Code(s): Z87.19 - Personal history of other diseases of the digestive system Status: Acute Assessment and Plan: most likely cause of bleeding again colonoscopy tomorrow GI Consult Note Consult date/time: 07/04/21 15:53 Reason for consult: rectal bleeding HPI: Aleah Dougherty is a 80 year old female with history of hypertension, coronary artery disease o baby aspirin, end-stage renal disease on hemodialysis Sunday and Fridays, congestive heart failure, diabetes mellitus and previous history of lower GIB in 2018 probably from diverticulosis +/- hemorrhoids (colonoscopy by Dr Pang reviewed). She lives at [facility]. She came here with new onset of rectal bleed yesterday and has been passing bright blood since. Denies abdominal pain, fever or nausea. ER evaluation showwed hemoglobin of 9.8 then 9, creatinine 7.4, BUN 50. Review of Systems Constitutional: Constitutional: Denies chills Eyes: Eyes: Denies blurry vision ENT: Reports Normal hearing present Cardiovascular: Cardiovascular: Denies chest pain Respiratory: Respiratory: Denies cough Gastrointestinal: Gastrointestinal: Reports hematochezia Genitourinary: Comments: on dialysis Musculoskeletal: Musculoskeletal: Reports no additional musculoskeletal complaints Integumentary/Breasts: Skin/Breast: Denies dry skin Neurologic: Reports system reviewed and no additional complaints, except as documented Psychiatric: Psychiatric: Reports no additional psychiatric complaints PMFSH Past Medical History Medical History (Updated 07/04/21 @ 15:57 by Chaim Carreno MD) Anemia Arthritis CAD (coronary artery disease) Cataract, right eye CHF (congestive heart failure) Chronic anemia Dialysis patient Diverticulitis DM (diabetes mellitus) Fibroids GI bleed History of angina History of GI diverticular bleed History of heart attack History of rectal polyps Hypercholesteremia Hypertension Hypothyroid Macular degeneration lt Personal history of kidney cancer Rectal bleeding Renal disease Ulcer Surgical History Surgical History History of appendectomy History of cataract surgery rt History of hysterectomy History of nephrectomy, left History of total bilateral knee replacement Hx of cardiac cath with stent placement Family History Family History (Updated 07/03/21 @ 22:28 by Alix Silverman RN) Mother Heart problem Diabetes mellitus Social History Social History (Updated 07/03/21 @ 16:25 by Antwan Betancourt DO) Smoking status: Former smoker Tobacco type: cigarettes Additional smoking assessment comments: quit 50 yrs ago Alcohol intake: current Drinks per week: 1 Substance use: never Gender identity (if verbalized by the patient): Femal
[2021-07-04] MEDS: BISACODYL 5 MG TABLET EC 20 MG PO (18:10)
[2021-07-04] MEDS: polyethylene glycoL 3350 238 GM BOTTLE PO (18:11)
[2021-07-05] VITALS (28 sets, daily range): BP systolic 97–164; BP diastolic 36–70; PULSE 59–83; RESP 14–20; TEMP 35.8–37.2; O2SAT 97–100
[2021-07-05] MEDS: MAGNESIUM CITRATE 300 ML BTL PO (03:30)
[2021-07-05 07:51] LABS: Albumin Level 3.5 g/dL (3.5-5.1); Anion Gap 15 mmol/L (8-16); Blood Urea Nitrogen 58 mg/dL (7-17); Calcium 6.1 mg/dL (8.4-10.2); Carbon Dioxide 19 mmol/L (22-30); Chloride 98 mmol/L (98-107); Estimated CRCL calculation 6 ml/min; Estimated Glomerular Filt Rate 6; Glucose 84 mg/dL (65-110); Phosphorus 9.4 mg/dL (2.5-4.5); Potassium 5.1 mmol/L (3.4-5.0); Sodium 132 mmol/L (137-145)
--- NOTE | 2021-07-05 08:42 | PM.CNNEP ---
Assessment and Plan Assessment and plan (1) ESRD (end stage renal disease): Code(s): N18.6 - End stage renal disease Status: Acute Assessment and Plan: End-stage renal disease Probable diverticular bleed with acute on chronic anemia, acute blood loss, history of anemia of chronic kidney disease History of parathyroidectomy status post secondary hyperparathyroidism with tertiary component requiring parathyroid removal, now hypocalcemia, has hyperphosphatemia due to ileus or any Runs blood pressures on the lower side and dialysis that has a history of evidence renal disease History of diabetes per report History of right knee infection: I believe patient was on chronic suppressive antibiotics and this needs to be resumed if this is the case. Will need to verify. Per dialysis records she was on doxycycline 100 mg twice a day History of coronary artery disease Hypothyroidism Additional Plan Dialysis Fluid removed Transfuse p.r.n. for hemoglobin less than 7 For colonoscopy today See orders History of Present Illness Reason for Consult Consult date: 07/05/21 Reason for consult: end stage renal disease Requesting physician: Royal Talamantes MD Chief Complaint Chief complaint: GI Bleed, Chronic Renal Failure w/ Dialysis History of Present Illness Narrative: 80-year-old female, known ESRD, history of diabetes, hypertension, history of secondary hyperparathyroidism, status post parathyroidectomy, recurrent hypocalcemia, on a Sunday, Sunday dialysis schedule. She presents with a rectal bleed started Sunday. Maroon blood mixed with stool. History of diverticulosis and she had a bleed about 4 years ago. No abdominal pain. No nausea vomiting. No hematemesis. No fevers or chills. The bleeding seems to be resolving. He is due for a colonoscopy today. Due to her dialysis needs we asked to see in consultation. She has a right upper arm AV graft. She is normally regular with the dialysis. Patient's hemoglobin was 9.8 grams/deciliter on June 22, on June 08 it was 10.1 grams/deciliter. Review of Systems Review of Systems: All systems reviewed & are unremarkable except as noted in HPI and below PMFSH Past Medical History Medical History (Updated 07/05/21 @ 08:54 by Haseeb Mathews MD) Anemia Arthritis CAD (coronary artery disease) Cataract, right eye CHF (congestive heart failure) Chronic anemia Dialysis patient Diverticulitis DM (diabetes mellitus) ESRD (end stage renal disease) Fibroids GI bleed History of angina History of GI diverticular bleed History of heart attack History of rectal polyps Hypercholesteremia Hypertension Hypothyroid Macular degeneration lt Personal history of kidney cancer Rectal bleeding Renal disease Ulcer Surgical History Surgical History History of appendectomy History of cataract surgery rt History of hysterectomy History of nephrectomy, left History of total bilateral knee replacement Hx of cardiac cath with stent placement Family History Family History (Updated 07/03/21 @ 22:28 by Alix Silverman RN) Mother Heart problem Diabetes mellitus Social History Social History (Updated 07/03/21 @ 16:25 by Antwan Betancourt DO) Smoking status: Former smoker Tobacco type: cigarettes Additional smoking assessment comments: quit 50 yrs ago Alcohol intake: current Drinks per week: 1 Substance use: never Gender identity (if verbalized by the patient): Female Spiritual care concerns: No Meds Home Medications and Allergies Home Medications Medication Instructions Recorded Confirmed Type B complex with C 20-folic acid 1 cap PO DAILY 07/10/19 07/10/19 History [Mynephrocaps] aspirin 81 mg PO DAILY 07/10/19 07/04/21 History calcitriol 0.25 mcg PO 3XW 07/10/19 07/10/19 History carvedilol [Coreg] 3.125 mg PO BID 07/10/19 07/04/21 History
--- NOTE | 2021-07-05 09:47 | WPDANESEPPF ---
Anes - Initial Pre Proc Eval Procedure: Operation Date: 07/05/21 10:30 Proposed Procedures p Colonoscopy - Chaim Carreno MD Date/Time: 07/05/21 09:47 Surgeon: Cody Little MD Pre Op Diagnosis: GI Bleed, Chronic Renal Failure w/ Dialysis Patient Data Age: 80 Gender: F Height: 1.63 m Weight: 108.5 kg Last Vital Signs Temp 96.9 F L 07/05/21 06:00 Pulse 73 07/05/21 06:00 Resp 18 07/05/21 06:00 BP 142/52 H 07/05/21 06:00 Pulse Ox 100 07/05/21 06:00 Allergies Allergy/AdvReac Type Severity Reaction Status Date / Time morphine AdvReac Unknown Itching Verified 07/03/21 16:53 Home Medications Medication Instructions Recorded Confirmed Type B complex with C 20-folic acid 1 cap PO DAILY 07/10/19 07/10/19 History [Mynephrocaps] aspirin 81 mg PO DAILY 07/10/19 07/04/21 History calcitriol 0.25 mcg PO 3XW 07/10/19 07/10/19 History carvedilol [Coreg] 3.125 mg PO BID 07/10/19 07/04/21 History folic acid-B complex,C no.17 1 tablet PO DAILY 07/10/19 07/10/19 History levothyroxine 100 mcg PO DAILY 07/10/19 07/04/21 History calcium acetate PO 01/12/20 History gabapentin [Neurontin] 300 mg PO TID 01/12/20 07/04/21 History pravastatin 40 mg PO HS 01/12/20 07/04/21 History tramadol 50 mg PO Q6H PRN #20 tablet 01/13/20 Rx lidocaine 1 patch TOPICAL DAILY #1 ea 06/03/20 07/04/21 Rx hydrocodone-acetaminophen [[place]] 1 tablet PO Q6H PRN #10 tablet 08/25/20 07/04/21 Rx acetaminophen [Tylenol Arthritis 500 mg PO Q8H PRN 07/04/21 History Pain] azelastine 0.1 INTRANASAL 07/04/21 History azelastine 1 spray INTRANASAL Q12H 07/04/21 07/04/21 History nitroglycerin 0.4 mg SUBLINGUAL Q10-15M PRN MDD 3 07/04/21 07/04/21 History Laboratory Tests 07/04/21 07/04/21 07/05/21 08:58 14:50 07:03 Hgb 9.0 g/dL L g/dL 8.6 g/dL L g/dL (12.0-15.0) (12.0-15.0) Hct 28.9 % L % 28.1 % L % (37.0-47.0) (37.0-47.0) Sodium 132 mmol/L L mmol/L (137-145) Potassium 5.1 mmol/L H mmol/L (3.4-5.0) Chloride 98 mmol/L mmol/L (98-107) Carbon Dioxide 19 mmol/L L mmol/L (22-30) Anion Gap 15 mmol/L mmol/L (8-16) BUN 58 mg/dL H mg/dL (7-17) Creatinine 8.40 mg/dL H mg/dL (0.7-1.0) Estim Creat Clear Calc 6 ml/min ml/min Estimated GFR 6 L (59 - ) Glucose 84 mg/dL mg/dL (65-110) Calcium 6.1 mg/dL L mg/dL (8.4-10.2) Phosphorus 9.4 mg/dL H mg/dL (2.5-4.5) Albumin 3.5 g/dL g/dL (3.5-5.1) Patient hx anesthesia problems: none Family hx anesthesia problems: none Results Review: All pre-operative results and documents have been reviewed as part of the pre-operative evaluation. [facility] Past Medical History Medical History (Updated 07/05/21 @ 08:54 by Haseeb Mathews MD) Anemia Arthritis CAD (coronary artery disease) Cataract, right eye CHF (congestive heart failure) Chronic anemia Dialysis patient Diverticulitis DM (diabetes mellitus) ESRD (end stage renal disease) Fibroids GI bleed History of angina History of GI diverticular bleed History of heart attack History of rectal polyps Hypercholesteremia Hypertension Hypothyroid Macular degeneration lt Personal history of kidney cancer Rectal bleeding Renal disease Ulcer Surgical History Surgical History History of appendectomy History of cataract surgery rt History of hysterectomy History of nephrectomy, left History of total bilateral knee replacement Hx of cardiac cath with stent placement Family History Family History (Updated 07/03/21 @ 22:28 by Alix Silverman RN) Mother Heart problem Diabetes mellitus Social History Social History (Updated 07/03/21 @ 16:25 by Antwan Betancourt DO) Smoking status: Former smoker Tobacco type: cigarettes Additional smoking assessment comments: quit 50 yrs ago Alcohol
[2021-07-05] MEDS: LACTATED RINGERS 1,000 ML 150 ML IV CONT (09:54)
--- NOTE | 2021-07-05 10:30 | PCPTNOTE ---
The patient treatment was not able to be completed at this time due to patient out of room for colonoscopy. Will plan to continue treatment per plan of care.
--- NOTE | 2021-07-05 11:05 | PC.NURSE ---
On 07/05/21, the student, [Michelle Morrissey ], provided care and completed [facility] documentation on this patient. I have reviewed the student's documentation and agree with the findings.
[2021-07-05] MEDS: CALCIUM CARBONATE (OSCAL) 500 MG TABLET 1000 MG PO ×2 (13:05→18:28)
--- NOTE | 2021-07-05 13:48 | PC.NURSE ---
call to dialysis [facility] to inquire when pt will be getting her treatment
[2021-07-05] MEDS: SODIUM CHLORIDE 0.9% IV 1,000 ML 100 ML IV CONT (15:00)
--- NOTE | 2021-07-05 15:26 | PM.IMPN ---
Progress Note: A&P Assessment and Plan (1) GI bleed: Code(s): K92.2 - Gastrointestinal hemorrhage, unspecified Status: Acute Assessment and Plan: Hgb 10.6-->8.6 today Transfuse if <7 GI consulted, recommendations appreciated Colonoscopy-->colonic polyps, diverticulosis without perforation, abscess or bleeding, internal hemrrohids Follow pathology Supportive care Monitor H/H q 6 (2) Anemia: Code(s): D64.9 - Anemia, unspecified Status: Acute Assessment and Plan: Likely to be anemia of chronic disease as patient with chronic kidney disease Acute on chronic Continue to monitor (3) Chronic renal failure: Code(s): N18.9 - Chronic kidney disease, unspecified Status: Acute Assessment and Plan: End-stage renal disease on hemodialysis Sunday as per Dr. Mathews No treatment yesterday, plan for HD today Cr 7.8-->8.4 today Avoid nephrotoxins Renally dose all meds Nephrology consulted Monitor renal panel (4) CAD (coronary artery disease): Code(s): I25.10 - Atherosclerotic heart disease of [place] coronary artery without angina pectoris Status: Acute Assessment and Plan: Stable Continue to monitor (5) Hypertension: Code(s): I10 - Essential (primary) hypertension Status: Acute Assessment and Plan: Stable Holding meds due to GI acute bleed Monitor (6) Arthritis: Code(s): M19.90 - Unspecified osteoarthritis, unspecified site Status: Acute Assessment and Plan: Tylenol as needed (7) Pressure injury of coccygeal region, stage 3: Code(s): L89.153 - Pressure ulcer of sacral region, stage 3 Status: Acute Assessment and Plan: Wound Care consulted Followed outpatient at [facility] wound center TID for dressing changes Continue supportive care Subjective Date/time seen: 07/05/21 15:26 Interval history: 07/04 Pt seen this a.m.; labs, vs reviewed; no acute events overnight; continues with bloody stoolsa 07/05 Pt seen and evaluated; s/p colonoscopy today; no new complaints; HD today Review of Systems Review of Systems: All systems reviewed & are unremarkable except as noted in HPI and below Exam Const: General: no acute distress, alert and awake Orientation/consciousness: patient oriented x3 HENMT: Head: normocephalic and atraumatic Ears: hearing grossly normal bilaterally and external ears normal Face and sinus: face symmetric Mouth: Yes Normal oral and palatal mucosa present Eyes: EOM: EOMs intact bilaterally Neck: Neck: full ROM, trachea midline and no JVD Resp: Effort & Inspection: normal respiratory effort Auscultation: clear to auscultation bilaterally Cardio: Jugular venous distension: no JVD Rate: regular rate Rhythm: regular rhythm Heart sounds: S1 normal heart sound present and S2 normal heart sound present GI: Auscultation: normal bowel sounds : General: Yes no CVA tenderness Back/Spine/Pelvis: Back: no CVA tenderness Skin: General skin exam: normal color Rashes: no rashes Neuro: General: patient oriented x3 Speech: normal speech Extrem: General: other (Chronic vascular changes noted; moves all extremities ) Psych: Appearance: grossly normal Affect: normal affect Judgement: Good judgement present (Psych) Objective Data Vital Signs Vital Signs: Vital Signs - 24 hr 07/04/21 16:00 07/04/21 20:00 07/04/21 22:00 Temperature 37.1 C Pulse Rate 74 116 H 75 Respiratory Rate 18 Blood Pressure 155/55 H Pulse Oximetry 100 07/05/21 00:00 07/05/21 00:01 07/05/21 04:00 Temperature Pulse Rate 76 75 Respiratory Rate Blood Pressure Pulse Oximetry 97 07/05/21 06:00 07/05/21 09:00 07/05/21 09:34 Temperature 36.1 C L 36.3 C L 35.9 C L Pulse Rate 73 72 75 Respiratory Rate 18 18 16 Blood Pressure 142/52 H 136/64 148/53 H Pulse Oximetry 100 99 100 07/05/21 10:15 07/05/21 10:25 07/05/21 10:35 [place]
--- NOTE | 2021-07-05 15:26 | PC.NURSE ---
to dialysis via bed
[2021-07-05 16:33] LABS: Hepatitis B Surface Antigen Negative (Negative)
[2021-07-05 16:50] LABS: Hepatitis B Surface Anti Res Negative
--- NOTE | 2021-07-05 18:15 | PC.NURSE ---
pt returned from dialysis
[2021-07-05] MEDS: HYDROcodone/acetaminophen (*CRX) 5-325 MG TABLET 1 TAB PO (18:28)
[2021-07-06] VITALS (9 sets, daily range): BP systolic 139–153; BP diastolic 44–56; PULSE 64–82; RESP 16–18; TEMP 35.9–36.3; O2SAT 100
[2021-07-06 04:37] LABS: Basophils Percent Auto 0.5 % (0.2-1.2); Eosinophils Absolute Auto 0.1 K/mm3 (0-0.3); Eosinophils Percent Auto 2.4 % (0-4.4); Hematocrit 23.2 % (37.0-47.0); Hemoglobin 7.3 g/dL (12.0-15.0); Immature Granulocyte Absolute 0.01 K/mm3 (0.00-0.031); Immature Granulocyte Percent A 0.2 % (0-0.5); Lymphocytes Absolute Auto 0.69 K/mm3 (0.9-3.2); Lymphocytes Percent Auto 16.4 % (18.3-44.2); Mean Corpuscular HGB Conc 31.5 g/dl (32-36); Mean Corpuscular Hemoglobin 26.9 pg (26-34); Mean Corpuscular Volume 85.6 fl (80-100); Mean Platelet Volume 12.3 fl (7.4-10.4); Monocytes Absolute Auto 0.6 K/mm3 (0.1-0.6); Monocytes Percent Auto 15.2 % (2.6-8.5); Neutrophils Absolute Auto 2.8 K/mm3 (1.3-6.7); Neutrophils Percent Auto 65.3 % (45.5-73.1); Nucleated Red Blood Cells Perc 0.5 % (0.0-0.2); Platelet Count Result 144 k/mm3 (150-375); Red Blood Count 2.71 M/mm3 (4.2-5.4); Red Cell Distribution Width 16.3 % (11.5-14.5); White Blood Count 4.2 K/mm3 (4.5-10.0)
[2021-07-06 05:51] LABS: Albumin Level 3.3 g/dL (3.5-5.1); Anion Gap 12 mmol/L (8-16); Blood Urea Nitrogen 37 mg/dL (7-17); Calcium 7.2 mg/dL (8.4-10.2); Carbon Dioxide 23 mmol/L (22-30); Chloride 96 mmol/L (98-107); Estimated CRCL calculation 8 ml/min; Estimated Glomerular Filt Rate 8; Glucose 90 mg/dL (65-110); Phosphorus 6.4 mg/dL (2.5-4.5); Potassium 4.2 mmol/L (3.4-5.0); Sodium 131 mmol/L (137-145)
[2021-07-06] MEDS: LEVOTHYROXINE SODIUM 100 MCG TABLET PO (06:38)
[2021-07-06] MEDS: CALCIUM CARBONATE (OSCAL) 500 MG TABLET 1000 MG PO ×3 (09:04→16:48)
--- NOTE | 2021-07-06 09:40 | WPDANESPN ---
Anes - Prog Note Post-Op Date/Time: 07/06/21 09:40 Cardiovascular status: normal Respiratory status: normal Airway patency: baseline Mental status: baseline Post-Op hydration status: normal Vital Signs: Last Vital Signs Temp 96.6 F L 07/06/21 06:37 Pulse 82 07/06/21 06:37 Resp 16 07/06/21 06:37 BP 146/44 H 07/06/21 06:37 Pulse Ox 100 07/06/21 06:37 Pain Score (VAS): 0/10 I/O: Intake & Output 07/05/21 07/06/21 07/06/21 23:59 07:59 15:59 Intake Total 100 220 Output Total 1500 Balance -1400 220 Laboratory Tests 07/06/21 04:26 07/06/21 04:26 07/05/21 07/06/21 07/06/21 15:22 04:26 04:26 WBC 4.2 L RBC 2.71 L Hgb 7.3 L Hct 23.2 L MCV 85.6 MCH 26.9 MCHC 31.5 L RDW 16.3 H Plt Count 144 L MPV 12.3 H Immature Gran % (Auto) 0.2 Neut % (Auto) 65.3 Lymph % (Auto) 16.4 L [place] % (Auto) 15.2 H Eos % (Auto) 2.4 Baso % (Auto) 0.5 Lymph # (Auto) 0.69 L [place] # (Auto) 0.6 Eos # (Auto) 0.1 Baso # (Auto) 0.0 Abs Immat Gran (auto) 0.01 Absolute Neuts (auto) 2.8 Absolute Nucleated RBC 0.0 Nucleated RBC % 0.5 H Sodium 131 L Potassium 4.2 Chloride 96 L Carbon Dioxide 23 Anion Gap 12 BUN 37 H D Creatinine 6.20 H Estim Creat Clear Calc 8 Estimated GFR 8 L Glucose 90 Calcium 7.2 L Phosphorus 6.4 H Albumin 3.3 L Hep Bs Antigen Negative Hep Bs Antibody Negative Post-procedural complaints: none Patient Feedback: Patient satisfied with anesthetic care.
--- NOTE | 2021-07-06 10:10 | PM.PNNEP ---
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, now hypocalcemia, has hyperphosphatemia due to ESRD Runs blood pressures on the lower side and dialysis that has a history of evidence renal disease History of diabetes per report: was on carvedilol 3.125 mg BID- not taking History of right knee infection: <del>I</del> <del>believe</del> <del>patient</del> <del>was</del> <del>on</del> <del>chronic</del> <del>suppressive</del> <del>antibiotics</del> <del>and</del> <del>this</del> <del>needs</del> <del>to</del> <del>be</del> <del>resumed</del> <del>if</del> <del>this</del> <del>is</del> <del>the</del> <del>case.</del> <del>Will</del> <del>need</del> <del>to</del> <del>verify.</del> <del>Per</del> <del>dialysis</del> <del>records</del> <del>she</del> <del>was</del> <del>on</del> <del>doxycycline</del> <del>100</del> <del>mg</del> <del>twice</del> <del>a</del> <del>day</del> Verified: in cephalexin 500 mg daily History of coronary artery disease Hypothyroidism: has not filled for a while, look at TSH, stop thyroxine Additional Plan End-stage renal disease: Dialysis today to get back on Sunday, Sunday, Sunday dialysis schedule Anemia of acute blood loss as well as anemia of chronic kidney disease: Given the fact the patient is unlikely to respond to erythropoietin in adequate time frame in situation of end-stage renal disease, and with a reported history of ongoing GI blood loss is best provided with 1 unit of blood transfusion. I would expect further decline in Hgb, with borderline hemoglobin of 7.3, I will prefer to transfuse in this patient. Reported history of knee infection: We will discontinue Thyroxine for the time being, look at TSH Start cephalexin Follow Subjective Date/time seen: 07/06/21 10:10 Interval history: Patient is feeling about the same. Continues to have intermittent blood in stool. Continues to decrease with her hemoglobin level. She is not lightheaded or dizzy. Denies any shortness of breath. No abdominal pain. States that she had hip pain yesterday at dialysis and had to cut her treatment short. Her lower extremity swelling is better. Review of Systems Review of Systems: As indicated above Exam Const: General: comfortable and no acute distress HENMT: Mouth: Yes moist mucous membranes Other: No pallor Eyes: General: appearance normal, both eyes and all related structures Sclera: sclerae normal Neck: Neck: supple and no JVD Resp: Auscultation: clear to auscultation bilaterally and no crackles Cardio: Rate: regular rate Rhythm: regular rhythm GI: GI Palp: Yes Soft to palpation and No Tenderness to palpation present (GI) Skin: General skin exam: normal color and no rashes or lesions noted Neuro: Cognition (Neuro): normal cognition Speech: normal speech Extrem: General: normal exam except as noted and edema bilateral Psych: Mental Status: mental status grossly normal Affect: normal affect Objective Data Vital Signs Vital Signs: Vital Signs - 24 hr 07/05/21 10:15 07/05/21 10:25 07/05/21 10:35 Temperature Pulse Rate 73 68 72 Respiratory Rate 19 18 14 Blood Pressure 101/48 L 108/43 L 120/48 L Pulse Oximetry 98 100 100 07/05/21 11:05 07/05/21 12:00 07/05/21 14:00 Temperature 35.8 C L Pulse Rate 71 70 78 Respiratory Rate 14 16 Blood Pressure 145/65 H 141/67 H Pulse Oximetry 100 99 07/05/21 15:28 07/05/21 15:40 07/05/21 16:00 Temperature 36.4 C Pulse Rate 67 69 81 Respiratory Rate 18 Blood Pressure 164/62 H 151/67 H 164/64 H Pulse Oximetry 07/05/21 16:15 07/05/21
--- NOTE | 2021-07-06 11:02 | PCPTNOTE ---
Attempted therapy at this time however patient was with occupational therapy. Will attempted at later time.
[2021-07-06] MEDS: CEPHALEXIN 500 MG CAPSULE PO (12:36)
[2021-07-06] MEDS: calcitrioL 0.25 MCG CAPSULE PO (12:36)
[2021-07-06 13:36] LABS: Free T4 Free Thyroxine Reflex 1.01 ng/dL (0.78-2.19)
--- NOTE | 2021-07-06 15:18 | PM.IMPN ---
Progress Note: A&P Assessment and Plan (1) GI bleed: Code(s): K92.2 - Gastrointestinal hemorrhage, unspecified Status: Acute Assessment and Plan: active bleeding contiue to watch hb may need blood transfusion vito Colonoscopy-->colonic polyps, diverticulosis without perforation, abscess or bleeding, internal hemrrohids Follow pathology Supportive care Monitor H/H q 6 (2) Anemia: Code(s): D64.9 - Anemia, unspecified Status: Acute Assessment and Plan: Likely to be anemia of chronic disease as patient with chronic kidney disease Acute on chronic Continue to monitor (3) Chronic renal failure: Code(s): N18.9 - Chronic kidney disease, unspecified Status: Acute Assessment and Plan: End-stage renal disease on hemodialysis Sunday as per Dr. Mathews (4) CAD (coronary artery disease): Code(s): I25.10 - Atherosclerotic heart disease of [place] coronary artery without angina pectoris Status: Acute Assessment and Plan: Stable Continue to monitor (5) Hypertension: Code(s): I10 - Essential (primary) hypertension Status: Acute Assessment and Plan: Stable Holding meds due to GI acute bleed Monitor (6) Arthritis: Code(s): M19.90 - Unspecified osteoarthritis, unspecified site Status: Acute Assessment and Plan: Tylenol as needed (7) Pressure injury of coccygeal region, stage 3: Code(s): L89.153 - Pressure ulcer of sacral region, stage 3 Status: Acute Assessment and Plan: Wound Care consulted Followed outpatient at [facility] wound center TID for dressing changes Continue supportive care Subjective Date/time seen: 07/06/21 15:18 Interval history: 07/04 Pt seen this a.m.; labs, vs reviewed; no acute events overnight; continues with bloody stoolsa 07/05 Pt seen and evaluated; s/p colonoscopy today; no new complaints; HD today 07/06 ongoing bleeding in bed, hb drop by one unit Review of Systems Review of Systems: All systems reviewed & are unremarkable except as noted in HPI and below Exam Narrative: Laying in gurney Const: General: cooperative, comfortable, no acute distress, well developed, alert, awake, Physically active and other (Well-appearing) Nutritional Appearance: overweight Orientation/consciousness: patient oriented x3 HENMT: Head: normal to inspection, normocephalic and atraumatic Ears: hearing grossly normal bilaterally and external ears normal General nose exam: Normal external nose present Face and sinus: normal facial exam and face symmetric Mouth: Yes Normal oral and palatal mucosa present Eyes: General: appearance normal, both eyes and all related structures Alignment and Position: alignment normal Sclera: sclerae normal Pupils: Equal, round and reactive pupils present EOM: EOMs intact bilaterally Neck: Neck: normal visual inspection, full ROM, no lymphadenopathy, trachea midline, supple and no JVD Thyroid: thyroid normal Lymphatic: no lymphadenopathy noted Resp: Effort & Inspection: normal respiratory effort and able to speak in complete sentences Auscultation: clear to auscultation bilaterally, no crackles, no rales, no rhonchi and no wheezes Cardio: Jugular venous distension: no JVD Rate: regular rate Rhythm: regular rhythm Heart sounds: S1 normal heart sound present and S2 normal heart sound present GI: Inspection: Pannus present Auscultation: normal bowel sounds : General: Yes no CVA tenderness and Yes deferred Back/Spine/Pelvis: Back: no CVA tenderness Skin: General skin exam: normal color and other (Bilateral lower extremity chronic skin changes and discoloration) Rashes: no rashes Wounds: no wounds Neuro: General: patient oriented x3 and Unable to assess gait Cranial nerves: Yes CN's II-XII intact bilaterally and Yes Equal, round and reactive pupils present Cognition (Neuro): normal cognition Speech: normal speech Gait exam
--- NOTE | 2021-07-06 15:40 | WPDGIPROGNO ---
Progress Note: A&P Assessment and Plan (1) Rectal bleeding: Code(s): K62.5 - Hemorrhage of anus and rectum Status: Acute Assessment and Plan: noted old blood in colonoscopy yesterday (2) Diverticular hemorrhage: Code(s): K57.31 - Diverticulosis of large intestine without perforation or abscess with bleeding Status: Acute Assessment and Plan: cause of rectal bleeding (3) Acute on chronic blood loss anemia: Code(s): D62 - Acute posthemorrhagic anemia Status: Acute Assessment and Plan: hb 7.3, blood in diaper probably is old continue to monitor (4) ESRD (end stage renal disease): Code(s): N18.6 - End stage renal disease Status: Acute Assessment and Plan: on dialysis (5) Hypertension: Code(s): I10 - Essential (primary) hypertension Status: Acute Subjective Date/time seen: 07/06/21 15:40 Interval history: colonoscopy found old blood in colon and most probably source of bleeding was diverticulosis. She says that today saw some blood in dependent, she is comfortable. Review of Systems Review of Systems: All systems reviewed & are unremarkable except as noted in HPI and below Exam Const: General: comfortable and no acute distress Other: obese HENMT: General nose exam: Normal nares present Eyes: General: appearance normal, both eyes and all related structures Neck: Neck: no JVD Resp: Auscultation: clear to auscultation bilaterally Cardio: Rate: regular rate Rhythm: regular rhythm GI: Inspection: non-distended GI Palp: Yes Soft to palpation and No Guarding due to palpation present (GI) Auscultation: normal bowel sounds Skin: General skin exam: normal color Neuro: Speech: normal speech Extrem: General: normal to inspection Psych: Mental Status: mental status grossly normal Objective Data Vital Signs Vital Signs: Vital Signs - 24 hr 07/05/21 16:00 07/05/21 16:15 07/05/21 16:30 Temperature Pulse Rate 81 83 70 Respiratory Rate Blood Pressure 164/64 H 164/70 H 140/70 Pulse Oximetry 07/05/21 16:45 07/05/21 17:00 07/05/21 17:08 Temperature Pulse Rate 60 75 59 L Respiratory Rate Blood Pressure 143/67 H 114/53 L 97/55 L Pulse Oximetry 07/05/21 17:15 07/05/21 17:30 07/05/21 17:47 Temperature Pulse Rate 66 67 72 Respiratory Rate Blood Pressure 131/61 109/53 L 108/36 L Pulse Oximetry 07/05/21 18:00 07/05/21 20:00 07/05/21 22:43 Temperature 97.6 F 96.7 F L Pulse Rate 74 82 83 Respiratory Rate 20 14 Blood Pressure 145/57 H 160/50 H Pulse Oximetry 100 07/05/21 23:40 07/06/21 00:00 07/06/21 04:00 Temperature Pulse Rate 74 81 Respiratory Rate Blood Pressure Pulse Oximetry 100 07/06/21 06:37 07/06/21 08:00 07/06/21 12:00 Temperature 96.6 F L Pulse Rate 82 69 71 Respiratory Rate 16 Blood Pressure 146/44 H Pulse Oximetry 100 07/06/21 14:00 Temperature 97.4 F L Pulse Rate 81 Respiratory Rate 16 Blood Pressure 139/55 L Pulse Oximetry 100 Intake/Output Intake/Output: Intake & Output 07/03/21 07/04/21 07/05/21 07/06/21 23:59 23:59 23:59 23:59 Intake Total 2890 600 820 Output Total 1500 Balance 2890 -900 820 Meds/Results Medications: Active Medications Generic Name Dose Route Start Last Admin Trade Name Freq PRN Reason Stop Dose Admin Acetaminophen 650 mg 07/04/21 14:14 07/04/21 14:19 Acetaminophen 325 Mg Tablet PO 650 mg Q6H PRN Administration Mild Pain (1-3) or Fever Hydrocodone Bitart/Acetaminophen 1 tab 07/04/21 13:55 07/05/21 18:28 Hydrocodone/Acetaminophen (*Crx) 5-325 Mg Tablet PO 1 tab Q6H PRN Administration Pain Rated 4-6 Calcitriol 0.25 mcg 07/06/21 10:45 07/06/21 12:36 Calcitriol 0.25 Mcg Capsule PO 0.25 mcg QAM MARY Administration Calcium Carbonate 1,000 mg 07/05/21 12:00 07/06/21 12:35 Calcium Carbonate (Oscal) 500 Mg Tablet PO 1,000 mg
[2021-07-07] VITALS (26 sets, daily range): BP systolic 122–211; BP diastolic 35–69; PULSE 55–82; RESP 16–20; TEMP 35.7–36.9; O2SAT 99
[2021-07-07] MEDS: diphenhydrAMINE HCl INJ 50 MG/ML VIAL 25 MG IV PUSH ×2 (03:59→10:27)
[2021-07-07 08:04] LABS: Hematocrit 22.1 % (37.0-47.0); Mean Corpuscular HGB Conc 31.7 g/dl (32-36); Mean Corpuscular Hemoglobin 26.5 pg (26-34); Mean Corpuscular Volume 83.7 fl (80-100); Mean Platelet Volume 12.3 fl (7.4-10.4); Platelet Count Result 152 k/mm3 (150-375); Red Blood Count 2.64 M/mm3 (4.2-5.4); Red Cell Distribution Width 15.9 % (11.5-14.5)
[2021-07-07 08:23] LABS: Anion Gap 11 mmol/L (8-16); Blood Urea Nitrogen 45 mg/dL (7-17); Calcium 7.7 mg/dL (8.4-10.2); Carbon Dioxide 26 mmol/L (22-30); Chloride 97 mmol/L (98-107); Estimated CRCL calculation 6 ml/min; Estimated Glomerular Filt Rate 6; Glucose 84 mg/dL (65-110); Potassium 4.7 mmol/L (3.4-5.0); Sodium 134 mmol/L (137-145)
[2021-07-07] MEDS: CALCIUM CARBONATE (OSCAL) 500 MG TABLET 1000 MG PO ×3 (08:44→17:30)
[2021-07-07 09:09] LABS: Total Triiodothyronine (T3) 0.65 NG/ML (0.97-1.69)
--- NOTE | 2021-07-07 09:28 | PC.NURSE ---
to dialysis per bed
[2021-07-07] MEDS: HYDROcodone/acetaminophen (*CRX) 5-325 MG TABLET 1 TAB PO (10:36)
--- NOTE | 2021-07-07 13:58 | PM.IMPN ---
Progress Note: A&P Assessment and Plan (1) GI bleed: Code(s): K92.2 - Gastrointestinal hemorrhage, unspecified Status: Acute Assessment and Plan: Sp blood transfusion today follow hb tomorrow, possible dc vito Colonoscopy-->colonic polyps, diverticulosis without perforation, abscess or bleeding, internal hemrrohids (2) Anemia: Code(s): D64.9 - Anemia, unspecified Status: Acute Assessment and Plan: Likely to be anemia of chronic disease as patient with chronic kidney disease Acute on chronic Continue to monitor (3) Chronic renal failure: Code(s): N18.9 - Chronic kidney disease, unspecified Status: Acute Assessment and Plan: End-stage renal disease on hemodialysis Sunday as per Dr. Mathews (4) CAD (coronary artery disease): Code(s): I25.10 - Atherosclerotic heart disease of [place] coronary artery without angina pectoris Status: Acute Assessment and Plan: Stable Continue to monitor (5) Hypertension: Code(s): I10 - Essential (primary) hypertension Status: Acute Assessment and Plan: Stable Holding meds due to GI acute bleed Monitor (6) Arthritis: Code(s): M19.90 - Unspecified osteoarthritis, unspecified site Status: Acute Assessment and Plan: Tylenol as needed (7) Pressure injury of coccygeal region, stage 3: Code(s): L89.153 - Pressure ulcer of sacral region, stage 3 Status: Acute Assessment and Plan: Wound Care consulted Followed outpatient at [facility] wound center TID for dressing changes Continue supportive care Subjective Date/time seen: 07/07/21 13:58 Interval history: 07/04 Pt seen this a.m.; labs, vs reviewed; no acute events overnight; continues with bloody stoolsa 07/05 Pt seen and evaluated; s/p colonoscopy today; no new complaints; HD today 07/06 ongoing bleeding in bed, hb drop by one unit 07/07 pts hb is 7 pt to have one unit of blood during dialysis Review of Systems Review of Systems: All systems reviewed & are unremarkable except as noted in HPI and below Exam Const: General: well developed and awake Resp: Auscultation: clear to auscultation bilaterally, no crackles, no rales, no rhonchi and no wheezes Cardio: Jugular venous distension: no JVD Rate: regular rate Rhythm: regular rhythm Heart sounds: S1 normal heart sound present and S2 normal heart sound present GI: Auscultation: normal bowel sounds Neuro: General: patient oriented x3 and Unable to assess gait Cranial nerves: Yes CN's II-XII intact bilaterally and Yes Equal, round and reactive pupils present Cognition (Neuro): normal cognition Speech: normal speech Gait exam (Neuro): Unable to assess gait Motor exam (neuro): 5/5 motor strength present throughout Objective Data Vital Signs Vital Signs: Vital Signs - 24 hr 07/06/21 14:00 07/06/21 16:00 07/06/21 20:00 Temperature 36.3 C L Pulse Rate 81 64 72 Respiratory Rate 16 Blood Pressure 139/55 L Pulse Oximetry 100 07/06/21 22:00 07/07/21 00:00 07/07/21 04:00 Temperature 36.2 C L Pulse Rate 78 79 75 Respiratory Rate 18 Blood Pressure 153/56 H Pulse Oximetry 100 07/07/21 06:00 07/07/21 08:00 07/07/21 09:40 Temperature 36.3 C L 36.9 C Pulse Rate 75 77 76 Respiratory Rate 18 16 Blood Pressure 148/61 H 176/64 H Pulse Oximetry 99 07/07/21 09:51 07/07/21 10:00 07/07/21 10:15 Temperature Pulse Rate 76 74 77 Respiratory Rate Blood Pressure 165/61 H 190/64 H 207/62 H Pulse Oximetry 07/07/21 10:30 07/07/21 10:40 07/07/21 10:45 Temperature 36.6 C Pulse Rate 81 81 72 Respiratory Rate 18 Blood Pressure 183/69 H 183/64 H 193/62 H Pulse Oximetry 07/07/21 11:00 07/07/21 11:15 07/07/21 11:30 Temperature 36.7 C Pulse Rate 76 69 72 Respiratory Rate 16 Blood Pressure 211/62 H 202/60 H 176/60 H Pulse Oximetry 07/07/21 11:45 07/07/21 12:00
--- NOTE | 2021-07-07 14:21 | PM.PNNEP ---
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, now hypocalcemia, has hyperphosphatemia due to ESRD Runs blood pressures on the lower side and dialysis that has a history of evidence renal disease History of diabetes per report: was on carvedilol 3.125 mg BID- not taking History of right knee infection: on cephalexin 500 mg daily History of coronary artery disease Hypothyroidism: has not filled for a while, look at TSH, stop thyroxine Additional Plan Dialysis supervised Hypothyroid disease thyroxine at previous dose, tolerated 1st couple of days so she can not tolerate Dialysis tomorrow Transfuse 1 unit on Follow-up Patient schedule outpatient basis for will be Sunday, Sunday, Sunday schedule. Otherwise she is on a Sunday, Sunday, Sunday schedule usually Subjective Date/time seen: 07/07/21 14:21 Interval history: Seen and examined in hemodialysis, urinalysis otherwise. Post dialysis prolonged bleeding through AV graft. Occasionally happens a dialysis outpatient as well. Patient has no orthostasis. Received 1 unit of blood. Review of Systems Review of Systems: No other symptoms. Indicated that she is not aware of today's blood in stool. Exam Narrative: Seen and examined in hemodialysis 07/07/2021. Comfortable with treatment. Prolonged bleeding post dialysis. Alert and awake, Nahomy negative, regular rhythm, apical breath sounds, no rales obese, soft nontender abdomen, edema negative, alert oriented x3, no tremor. Objective Data Vital Signs Vital Signs: Vital Signs - 24 hr 07/06/21 16:00 07/06/21 20:00 07/06/21 22:00 Temperature 36.2 C L Pulse Rate 64 72 78 Respiratory Rate 18 Blood Pressure 153/56 H Pulse Oximetry 100 07/07/21 00:00 07/07/21 04:00 07/07/21 06:00 Temperature 36.3 C L Pulse Rate 79 75 75 Respiratory Rate 18 Blood Pressure 148/61 H Pulse Oximetry 99 07/07/21 08:00 07/07/21 09:40 07/07/21 09:51 Temperature 36.9 C Pulse Rate 77 76 76 Respiratory Rate 16 Blood Pressure 176/64 H 165/61 H Pulse Oximetry 07/07/21 10:00 07/07/21 10:15 07/07/21 10:30 Temperature Pulse Rate 74 77 81 Respiratory Rate Blood Pressure 190/64 H 207/62 H 183/69 H Pulse Oximetry 07/07/21 10:40 07/07/21 10:45 07/07/21 11:00 Temperature 36.6 C Pulse Rate 81 72 76 Respiratory Rate 18 Blood Pressure 183/64 H 193/62 H 211/62 H Pulse Oximetry 07/07/21 11:15 07/07/21 11:30 07/07/21 11:45 Temperature 36.7 C Pulse Rate 69 72 63 Respiratory Rate 16 Blood Pressure 202/60 H 176/60 H 167/48 H Pulse Oximetry 07/07/21 12:00 07/07/21 12:15 07/07/21 12:30 Temperature Pulse Rate 61 70 69 Respiratory Rate Blood Pressure 153/35 H 174/44 H 160/38 H Pulse Oximetry 07/07/21 12:45 07/07/21 13:00 07/07/21 13:22 Temperature Pulse Rate 60 55 L 72 Respiratory Rate Blood Pressure 158/42 H 158/42 H 161/42 H Pulse Oximetry 07/07/21 13:35 Temperature 36.2 C L Pulse Rate 82 Respiratory Rate 16 Blood Pressure 171/56 H Pulse Oximetry Intake/Output Intake/Output: Intake & Output 07/04/21 07/05/21 07/06/21 07/07/21 23:59 23:59 23:59 23:59 Intake Total 2890 600 1140 875 Output Total 1500 3200 Balance 2890 -900 1140 -3461 Meds/Results Medications: Active Medications Generic Name Dose Route Start Last Admin Trade Name Freq PRN Reason Stop Dose Admin Acetaminophen 650 mg 07/04/21 14:14 07/04/21 14:19 Acetaminophen 325 Mg Tablet PO 650 mg Q6H PRN Administration Mild Pain (1-3) or Fever Hydrocod
[2021-07-07] MEDS: calcitrioL 0.25 MCG CAPSULE PO (15:11)
[2021-07-07] MEDS: CEPHALEXIN 500 MG CAPSULE PO (15:11)
[2021-07-07] MEDS: LEVOTHYROXINE SODIUM 100 MCG TABLET PO (15:12)
--- NOTE | 2021-07-07 17:46 | WPDGIPROGNO ---
Progress Note: A&P Assessment and Plan (1) Rectal bleeding: Code(s): K62.5 - Hemorrhage of anus and rectum Status: Acute Assessment and Plan: resolved cause was diverticular but no active bleeding only found old blood she is going home tomorrow (2) Diverticular hemorrhage: Code(s): K57.31 - Diverticulosis of large intestine without perforation or abscess with bleeding Status: Acute Assessment and Plan: cause of rectal bleeding (3) Acute on chronic blood loss anemia: Code(s): D62 - Acute posthemorrhagic anemia Status: Acute Assessment and Plan: she also has anemia of chronic disease no more rectal bleeding (4) ESRD (end stage renal disease): Code(s): N18.6 - End stage renal disease Status: Acute Assessment and Plan: on dialysis (5) Hypertension: Code(s): I10 - Essential (primary) hypertension Status: Acute Subjective Date/time seen: 07/07/21 17:46 Interval history: no more bleeding, tolerating diet Review of Systems Review of Systems: All systems reviewed & are unremarkable except as noted in HPI and below Exam Const: General: comfortable and no acute distress Other: obese HENMT: General nose exam: Normal nares present Eyes: General: appearance normal, both eyes and all related structures Neck: Neck: no JVD Resp: Auscultation: clear to auscultation bilaterally Cardio: Rate: regular rate Rhythm: regular rhythm GI: Inspection: non-distended GI Palp: Yes Soft to palpation and No Guarding due to palpation present (GI) Auscultation: normal bowel sounds Skin: General skin exam: normal color Neuro: Speech: normal speech Extrem: General: normal to inspection Psych: Mental Status: mental status grossly normal Objective Data Vital Signs Vital Signs: Vital Signs - 24 hr 07/06/21 20:00 07/06/21 22:00 07/07/21 00:00 Temperature 97.1 F L Pulse Rate 72 78 79 Respiratory Rate 18 Blood Pressure 153/56 H Pulse Oximetry 100 07/07/21 04:00 07/07/21 06:00 07/07/21 08:00 Temperature 97.4 F L Pulse Rate 75 75 77 Respiratory Rate 18 Blood Pressure 148/61 H Pulse Oximetry 99 07/07/21 09:40 07/07/21 09:51 07/07/21 10:00 Temperature 98.4 F Pulse Rate 76 76 74 Respiratory Rate 16 Blood Pressure 176/64 H 165/61 H 190/64 H Pulse Oximetry 07/07/21 10:15 07/07/21 10:30 07/07/21 10:40 Temperature 97.9 F Pulse Rate 77 81 81 Respiratory Rate 18 Blood Pressure 207/62 H 183/69 H 183/64 H Pulse Oximetry 07/07/21 10:45 07/07/21 11:00 07/07/21 11:15 Temperature 98.1 F Pulse Rate 72 76 69 Respiratory Rate 16 Blood Pressure 193/62 H 211/62 H 202/60 H Pulse Oximetry 07/07/21 11:30 07/07/21 11:45 07/07/21 12:00 Temperature Pulse Rate 72 63 65 Respiratory Rate Blood Pressure 176/60 H 167/48 H 153/35 H Pulse Oximetry 07/07/21 12:15 07/07/21 12:30 07/07/21 12:45 Temperature Pulse Rate 70 69 60 Respiratory Rate Blood Pressure 174/44 H 160/38 H 158/42 H Pulse Oximetry 07/07/21 13:00 07/07/21 13:22 07/07/21 13:35 Temperature 97.2 F L Pulse Rate 55 L 72 82 Respiratory Rate 16 Blood Pressure 158/42 H 161/42 H 171/56 H Pulse Oximetry Intake/Output Intake/Output: Intake & Output 07/04/21 07/05/21 07/06/21 07/07/21 23:59 23:59 23:59 23:59 Intake Total 2890 600 1140 1415 Output Total 1500 3200 Balance 2890 -900 1140 -1785 Meds/Results Medications: Active Medications Generic Name Dose Route Start Last Admin Trade Name Freq PRN Reason Stop Dose Admin Acetaminophen 650 mg 07/04/21 14:14 07/04/21 14:19 Acetaminophen 325 Mg Tablet PO 650 mg Q6H PRN Administration Mild Pain (1-3) or Fever Hydrocodone Bitart/Acetaminophen 1 tab 07/04/21 13:55 07/07/21 10:36 Hydrocodone/Acetaminophen (*Crx) 5-325 Mg Tablet PO 1 tab Q6H PRN Administration Pain Rated 4-6 Calcitriol 0.25 mcg
[2021-07-08] VITALS (27 sets, daily range): BP systolic 109–202; BP diastolic 25–78; PULSE 62–95; RESP 16–20; TEMP 35.2–36.6; O2SAT 97–100
[2021-07-08] MEDS: LEVOTHYROXINE SODIUM 100 MCG TABLET PO (06:06)
[2021-07-08 06:14] LABS: Basophils Percent Auto 0.4 % (0.2-1.2); Eosinophils Absolute Auto 0.1 K/mm3 (0-0.3); Eosinophils Percent Auto 2.9 % (0-4.4); Hematocrit 24.7 % (37.0-47.0); Hemoglobin 7.9 g/dL (12.0-15.0); Immature Granulocyte Absolute 0.01 K/mm3 (0.00-0.031); Immature Granulocyte Percent A 0.2 % (0-0.5); Immature Platelet Fraction Pct 5.9 % (0.9-11.2); Lymphocytes Absolute Auto 0.81 K/mm3 (0.9-3.2); Lymphocytes Percent Auto 16.6 % (18.3-44.2); Mean Corpuscular Hemoglobin 27.7 pg (26-34); Mean Corpuscular Volume 86.7 fl (80-100); Mean Platelet Volume 11.7 fl (7.4-10.4); Monocytes Percent Auto 20.1 % (2.6-8.5); Neutrophils Absolute Auto 2.9 K/mm3 (1.3-6.7); Neutrophils Percent Auto 59.8 % (45.5-73.1); Platelet Count Result 134 k/mm3 (150-375); Red Blood Count 2.85 M/mm3 (4.2-5.4); Red Cell Distribution Width 15.5 % (11.5-14.5); White Blood Count 4.9 K/mm3 (4.5-10.0)
[2021-07-08 06:25] LABS: Albumin Level 3.2 g/dL (3.5-5.1); Anion Gap 4 mmol/L (8-16); Blood Urea Nitrogen 24 mg/dL (7-17); Calcium 8.1 mg/dL (8.4-10.2); Carbon Dioxide 32 mmol/L (22-30); Chloride 95 mmol/L (98-107); Estimated CRCL calculation 10 ml/min; Estimated Glomerular Filt Rate 10; Glucose 89 mg/dL (65-110); Phosphorus 4.3 mg/dL (2.5-4.5); Potassium 4.1 mmol/L (3.4-5.0); Sodium 131 mmol/L (137-145)
--- NOTE | 2021-07-08 08:17 | PC.NURSE ---
to dialysis per bed
[2021-07-08] MEDS: HYDROcodone/acetaminophen (*CRX) 5-325 MG TABLET 1 TAB PO (08:48)
[2021-07-08] MEDS: diphenhydrAMINE HCl INJ 50 MG/ML VIAL 25 MG IV PUSH (08:48)
[2021-07-08] MEDS: CALCIUM CARBONATE (OSCAL) 500 MG TABLET 1000 MG PO ×3 (08:49→16:37)
--- NOTE | 2021-07-08 10:13 | PCPTNOTE ---
The patient treatment was not able to be completed due to patient out of room for dialysis. Will plan to continue treatment per plan of care.
--- NOTE | 2021-07-08 10:14 | PM.PNNEP ---
Progress Note: A&P Assessment and Plan (1) ESRD (end stage renal disease): Code(s): N18.6 - End stage renal disease Status: Acute Assessment and Plan: End-stage renal disease Probable diverticular bleed with acute on chronic anemia, acute blood loss, history of anemia of chronic kidney disease, Hgb still on lower side, EPO as outpatient if being discharged. 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 Otherwise she is on a Sunday, Sunday, Sunday schedule usually resume carvedilol EPO Subjective Date/time seen: 07/08/21 10:14 Interval history: Seen and examined on hemodialysis 07/08/21 feels OK sheis not sure if she is bleeding, Hgb 7.9 Review of Systems Review of Systems: All systems reviewed & are unremarkable except as noted in HPI and below Exam Narrative: HD supervised, QB 400, UF 3L, 3K bath, AVG in use RRR, lungs clear,soft abdomen, decreased edema, alert Objective Data Vital Signs Vital Signs: Vital Signs - 24 hr 07/07/21 10:15 07/07/21 10:30 07/07/21 10:40 Temperature 36.6 C Pulse Rate 77 81 81 Respiratory Rate 18 Blood Pressure 207/62 H 183/69 H 183/64 H Pulse Oximetry 07/07/21 10:45 07/07/21 11:00 07/07/21 11:15 Temperature 36.7 C Pulse Rate 72 76 69 Respiratory Rate 16 Blood Pressure 193/62 H 211/62 H 202/60 H Pulse Oximetry 07/07/21 11:30 07/07/21 11:45 07/07/21 12:00 Temperature Pulse Rate 72 63 65 Respiratory Rate Blood Pressure 176/60 H 167/48 H 153/35 H Pulse Oximetry 07/07/21 12:15 07/07/21 12:30 07/07/21 12:45 Temperature Pulse Rate 70 69 60 Respiratory Rate Blood Pressure 174/44 H 160/38 H 158/42 H Pulse Oximetry 07/07/21 13:00 07/07/21 13:22 07/07/21 13:35 Temperature 36.2 C L Pulse Rate 55 L 72 82 Respiratory Rate 16 Blood Pressure 158/42 H 161/42 H 171/56 H Pulse Oximetry 07/07/21 16:00 07/07/21 20:00 07/07/21 21:09 Temperature Pulse Rate 80 70 80 Respiratory Rate 16 Blood Pressure Pulse Oximetry 99 07/07/21 21:44 07/08/21 00:00 07/08/21 04:00 Temperature 36.2 C L Pulse Rate 71 65 76 Respiratory Rate 20 Blood Pressure 122/41 L Pulse Oximetry 99 07/08/21 05:56 07/08/21 08:00 07/08/21 08:30 Temperature 36.6 C 36.3 C L Pulse Rate 80 70 81 Respiratory Rate 20 18 Blood Pressure 144/37 H 188/72 H Pulse Oximetry 100 07/08/21 08:41 07/08/21 09:00 07/08/21 09:15 Temperature Pulse Rate 79 75 76 Respiratory Rate Blood Pressure 165/60 H 185/73 H 202/51 H Pulse Oximetry 07/08/21 09:30 07/08/21 09:45 07/08/21 10:00 Temperature Pulse Rate 73 73 75 Respiratory Rate Blood Pressure 190/68 H 190/43 H 201/43 H Pulse Oximetry Intake/Output Intake/Output: Intake & Output 07/05/21 07/06/21 07/07/21 07/08/21 23:59 23:59 23:59 23:59 Intake Total 600 1140 1615 250 Output Total 1500 3200 Balance -900 1140 -1585 250 Meds/Results Medications: Active Medications Generic Name Dose Route Start Last Admin Trade Name Freq PRN Reason Stop Dose Admin Acetaminophen 650 mg 07/04/21 14:14 07/04/21 14:19 Acetaminophen 325 Mg Tablet PO 650 mg Q6H PRN Administration Mild Pain (1-3) or Fever Hydroco
--- NOTE | 2021-07-08 11:13 | PCNFU ---
Nutrition Follow-Up Complete: Increased protein needs related to wound as evidenced by stage III coccyx pressure ulcer. Goal: Pt. to meet estimated nutritional needs. Pt. progressing towards goal. No new goal at this time. Pt current nutrition is renal dialysis diet. Last recorded weight is 108.4 kg. Recommend re-weighing prior to discharge. Bowel Motility: + BM 07/07/2021. Labs Reviewed: Hgb 7.9, Hct 24.7, Na 131, GFR 10, BUN 24, Cr 4.9 Meds Noted: Albutein, Coreg, Synthroid Skin: Stage III coccyx pressure ulcer. Additional Notes: Pt. is consuming on average 70% of meals. No nutritional questions and/or concerns at this time. Monitor pt. labs, medications, weight and oral intake every 5 days.
--- NOTE | 2021-07-08 11:28 | PCOTNOTE ---
Attempted to see patient this am, however patient off floor for dialysis.
[2021-07-08] MEDS: EPOETIN ALFA-EPBX 4,000 UNITS/ML VIAL 4000 UNITS IV PUSH (11:36)
[2021-07-08] MEDS: CELLULOSE OXIDIZED 2 x 14 INCH 1 PKT XX (11:36)
[2021-07-08] MEDS: CEPHALEXIN 500 MG CAPSULE PO (12:56)
[2021-07-08] MEDS: calcitrioL 0.25 MCG CAPSULE PO (12:57)
--- NOTE | 2021-07-08 13:48 | PCNSR ---
On 07/08/21, the student,Meliza Velasco, provided care and completed [facility] documentation on this patient. I have reviewed the student's documentation and agree with the findings.
--- NOTE | 2021-07-08 14:06 | PM.IMPN ---
Progress Note: A&P Assessment and Plan (1) GI bleed: Code(s): K92.2 - Gastrointestinal hemorrhage, unspecified Status: Acute Assessment and Plan: Colonoscopy-->colonic polyps, diverticulosis without perforation, abscess or bleeding, internal hemorrhoids some rectal bleeding ongoing am labs and dc tomorrow (2) Anemia: Code(s): D64.9 - Anemia, unspecified Status: Acute Assessment and Plan: Likely to be anemia of chronic disease as patient with chronic kidney disease Acute on chronic Continue to monitor (3) Chronic renal failure: Code(s): N18.9 - Chronic kidney disease, unspecified Status: Acute Assessment and Plan: End-stage renal disease on hemodialysis Sunday as per Dr. Mathews (4) CAD (coronary artery disease): Code(s): I25.10 - Atherosclerotic heart disease of [place] coronary artery without angina pectoris Status: Acute Assessment and Plan: Stable Continue to monitor (5) Hypertension: Code(s): I10 - Essential (primary) hypertension Status: Acute Assessment and Plan: Stable (6) Pressure injury of coccygeal region, stage 3: Code(s): L89.153 - Pressure ulcer of sacral region, stage 3 Status: Acute Assessment and Plan: Wound Care consulted Followed outpatient at [facility] wound center TID for dressing changes Continue supportive care Subjective Date/time seen: 07/08/21 14:06 Interval history: 07/04 Pt seen this a.m.; labs, vs reviewed; no acute events overnight; continues with bloody stoolsa 07/05 Pt seen and evaluated; s/p colonoscopy today; no new complaints; HD today 07/06 ongoing bleeding in bed, hb drop by one unit 07/07 pts hb is 7 pt to have one unit of blood during dialysis 07/08 mild rectal bleeding hopeful dc tomorrow after am labs Review of Systems Review of Systems: All systems reviewed & are unremarkable except as noted in HPI and below Exam Const: General: cooperative and healthy appearing; No in distress Nutritional Appearance: overweight Orientation/consciousness: oriented to person HENMT: Head: normal to inspection Resp: Effort & Inspection: no respiratory distress Auscultation: no rhonchi and no wheezes Cardio: Rate: regular rate Rhythm: regular rhythm GI: Inspection: normal to inspection GI Palp: No abdominal tenderness, No Guarding due to palpation present (GI) and No Hepatomegaly present Auscultation: normal bowel sounds Neuro: General: oriented to person Objective Data Vital Signs Vital Signs: Vital Signs - 24 hr 07/07/21 16:00 07/07/21 20:00 07/07/21 21:09 Temperature Pulse Rate 80 70 80 Respiratory Rate 16 Blood Pressure Pulse Oximetry 99 07/07/21 21:44 07/08/21 00:00 07/08/21 04:00 Temperature 36.2 C L Pulse Rate 71 65 76 Respiratory Rate 20 Blood Pressure 122/41 L Pulse Oximetry 99 07/08/21 05:56 07/08/21 08:00 07/08/21 08:30 Temperature 36.6 C 36.3 C L Pulse Rate 80 70 81 Respiratory Rate 20 18 Blood Pressure 144/37 H 188/72 H Pulse Oximetry 100 07/08/21 08:41 07/08/21 09:00 07/08/21 09:15 Temperature Pulse Rate 79 75 76 Respiratory Rate Blood Pressure 165/60 H 185/73 H 202/51 H Pulse Oximetry 07/08/21 09:30 07/08/21 09:45 07/08/21 10:00 Temperature Pulse Rate 73 73 75 Respiratory Rate Blood Pressure 190/68 H 190/43 H 201/43 H Pulse Oximetry 07/08/21 10:15 07/08/21 10:30 07/08/21 10:45 Temperature Pulse Rate 70 78 78 Respiratory Rate Blood Pressure 159/36 H 163/31 H 154/53 H Pulse Oximetry 07/08/21 11:00 07/08/21 11:15 07/08/21 11:30 Temperature Pulse Rate 80 74 62 Respiratory Rate Blood Pressure 164/49 H 162/39 H 115/29 L Pulse Oximetry 07/08/21 11:45 07/08/21 12:00 07/08/21 12:13 Temperature Pulse Rate 73 77 84 Respiratory Rate Blood Pressure 161/25 H 146/28 H 118/36 L Pulse Oximetry
[2021-07-08] MEDS: carvediloL 3.125 MG TABLET PO (20:33)
[2021-07-09] VITALS (7 sets, daily range): BP systolic 125–142; BP diastolic 46–50; PULSE 66–80; RESP 18; TEMP 36.6–36.9; O2SAT 98–99
[2021-07-09] MEDS: LEVOTHYROXINE SODIUM 100 MCG TABLET PO (06:21)
[2021-07-09 07:47] LABS: Hematocrit 26.5 % (37.0-47.0); Hemoglobin 8.1 g/dL (12.0-15.0); Mean Corpuscular HGB Conc 30.6 g/dl (32-36); Mean Corpuscular Hemoglobin 28.2 pg (26-34); Mean Corpuscular Volume 92.3 fl (80-100); Mean Platelet Volume 12.3 fl (7.4-10.4); Platelet Count Result 121 k/mm3 (150-375); Red Blood Count 2.87 M/mm3 (4.2-5.4); White Blood Count 4.7 K/mm3 (4.5-10.0)
[2021-07-09] MEDS: carvediloL 3.125 MG TABLET PO (08:43)
[2021-07-09] MEDS: CALCIUM CARBONATE (OSCAL) 500 MG TABLET 1000 MG PO ×2 (08:43→11:54)
[2021-07-09] MEDS: CEPHALEXIN 500 MG CAPSULE PO (08:44)
[2021-07-09] MEDS: calcitrioL 0.25 MCG CAPSULE PO (08:44)
[2021-07-09] MEDS: HYDROcodone/acetaminophen (*CRX) 5-325 MG TABLET 1 TAB PO (13:17)
--- NOTE | 2021-07-09 13:31 | PCPTNOTE ---
Attempted to see patient for Physical Therapy treatment. Patient declined at this time stating she is supposed to go home today and doesn't feel up for doing therapy.
--- NOTE | 2021-07-09 13:37 | PM.DS ---
DS: Admitting Diagnosis Discharge Date 07/09/2021 Admitting Diagnosis Rectal bleed. DS: Discharge Diagnosis Discharge Diagnosis (1) GI bleed: Code(s): K92.2 - Gastrointestinal hemorrhage, unspecified Status: Acute Assessment and Plan: Colonoscopy-->colonic polyps, diverticulosis without perforation, abscess or bleeding, internal hemorrhoids some rectal bleeding. hb is stable ok to discharge (2) Anemia: Code(s): D64.9 - Anemia, unspecified Status: Acute Assessment and Plan: Likely to be anemia of chronic disease as patient with chronic kidney disease (3) Chronic renal failure: Code(s): N18.9 - Chronic kidney disease, unspecified Status: Acute Assessment and Plan: End-stage renal disease on hemodialysis Sunday as per Dr. Mathews (4) CAD (coronary artery disease): Code(s): I25.10 - Atherosclerotic heart disease of [place] coronary artery without angina pectoris Status: Acute Assessment and Plan: Stable (5) Hypertension: Code(s): I10 - Essential (primary) hypertension Status: Acute Assessment and Plan: Stable (6) Arthritis: Code(s): M19.90 - Unspecified osteoarthritis, unspecified site Status: Acute Assessment and Plan: Tylenol as needed (7) Pressure injury of coccygeal region, stage 3: Code(s): L89.153 - Pressure ulcer of sacral region, stage 3 Status: Acute Assessment and Plan: Wound Care consulted Followed outpatient at [facility] wound center TID for dressing changes Continue supportive care DS: Summary Hospital Course Hospital Course: Pt seen this a.m.; labs, vs reviewed; no acute events overnight; continues with bloody stools 07/05 Pt seen and evaluated; s/p colonoscopy today; no new complaints; HD today 07/06 ongoing bleeding in bed, hb drop by one unit 07/07 pts hb is 7 pt to have one unit of blood during dialysis 07/08 mild rectal bleeding 07/09 ot stable for discharge Hb is stable on am labs Time Spent with Patient Time attestation: Total time spent providing and/or coordinating discharge services:40 minutes on day of discharge Exam Const: General: cooperative and healthy appearing; No in distress Nutritional Appearance: overweight Orientation/consciousness: oriented to person HENMT: Head: normal to inspection Resp: Effort & Inspection: no respiratory distress Auscultation: no rhonchi and no wheezes Cardio: Rate: regular rate Rhythm: regular rhythm GI: Inspection: normal to inspection Auscultation: normal bowel sounds Neuro: General: oriented to person DS: Data Data Completed and Pending Completed studies during hospitalization: Pending at discharge 07/05/21 10:10 Surgical [PTH] Routine Labs on day of discharge: Labs from last 24 hours 07/09/21 07:38 WBC 4.7 RBC 2.87 L Hgb 8.1 L Hct 26.5 L MCV 92.3 D MCH 28.2 MCHC 30.6 L RDW 16.0 H Plt Count 121 L MPV 12.3 H Discharge Plan Discharge Attending physician on discharge: Nelda Souza Consulting providers: Chaim Carreno ; Haseeb Mathews Discharging Clinician: Nelda Souza Anticipated Discharge Date/Time: 07/09/21 13:29 Patient Disposition: SNF Activity: as tolerated Diet: heart healthy Discharge Instructions: Per Care Coordination: Pt. to resume [facility] Home Health at discharge. [facility] Home Health can be contacted at . Nursing please fax discharge paperwork to . Patient Instructions: Antibiotic Form, Gastrointestinal Bleeding (GEN), Dialysis Diet (GEN), Hemodialysis (GEN) Stand Alone Forms: General Discharge Information Discharge Medications: New hydrocodone-acetaminophen 5-325 mg Tablet 1 tablet PO Q6H PRN (Reason: Pain Rated 4-6) Qty: 10 RF: 0 carvedilol [Coreg] 3.125 mg Tablet 3.125 mg PO Q12HR Qty: 60 RF: 0 levothyroxine [Synthroi
== END 2021-07-09 15:10 | disposition home health service (06) | DRG 377 ==
LOC: ANHED 19:19 → ANH3MEDSUR 20:26
PROVIDERS: Internal Medicine Gastroenterology; Internal Medicine Nephrology; Nurse Practitioner Adult Health; Admitting Provider Family Medicine; Emergency Provider Emergency Medicine; PCP Internal Medicine; Visit Provider Family Medicine
PROC: 0DJD8ZZ Inspection of Lower Intestinal Tract, Via Natural or Artificial Opening Endoscopic (ICD-10-PCS; CPT 45378; principal; 2021-07-05 10:30)
DX: K57.91 Diverticulosis of intestine, part unspecified, without perforation or abscess with bleeding (principal); L89.153 Pressure ulcer of sacral region, stage 3; N18.6 End stage renal disease; I13.2 Hypertensive heart and chronic kidney disease with heart failure and with stage 5 chronic kidney disease, or end stage renal disease; I13.0 Hypertensive heart and chronic kidney disease with heart failure and stage 1 through stage 4 chronic kidney disease, or unspecified chronic kidney disease; D62 Acute posthemorrhagic anemia; N25.81 Secondary hyperparathyroidism of renal origin; M19.90 Unspecified osteoarthritis, unspecified site; E11.22 Type 2 diabetes mellitus with diabetic chronic kidney disease; I25.10 Atherosclerotic heart disease of native coronary artery without angina pectoris; H26.9 Unspecified cataract; Z99.2 Dependence on renal dialysis; I25.2 Old myocardial infarction; E78.00 Pure hypercholesterolemia, unspecified; E03.9 Hypothyroidism, unspecified; Z85.528 Personal history of other malignant neoplasm of kidney; Z90.5 Acquired absence of kidney; Z95.5 Presence of coronary angioplasty implant and graft; I50.9 Heart failure, unspecified; E11.36 Type 2 diabetes mellitus with diabetic cataract; Z87.891 Personal history of nicotine dependence; D63.1 Anemia in chronic kidney disease; K64.8 Other hemorrhoids; E83.51 Hypocalcemia; E83.39 Other disorders of phosphorus metabolism; K63.5 Polyp of colon
CPT/HCPCS: 36415; 36430; 80048; 80053; 80069; 83605; 84439; 84443; 84480; 85014; 85018; 85025; 85027; 85055; 85610; 85730; 86706; 86850; 86900; 86901; 86920; 87340; 88305; 96360; 97110; 97162; 97166; 97530; 97535; 99285; A9270; G0257; G0378; J1200; J2370; J7030; J7120; P9016; Q5105

== ENCOUNTER 2021-08-22 09:47 | Emergency (ER) | payer MEDICARE, OTHER, SELFPAY ==
--- NOTE | ~2021-08-22 | CT_ITS ---
EXAMINATION: CT abdomen pelvis wo con EXAM DATE: 08/22/2021 20:24 INDICATION: Sacral ulcer, and GI bleed . TECHNIQUE: Spiral CT of the abdomen and pelvis was performed without contrast. Axial, coronal and s agittal images of the abdomen and pelvis were reviewed. The dose-length product (DLP) for this exami nation was 1349.54 mGy-cm. The exposure was tailored according to patient size (auto mA exposure con trol), and iterative reconstruction (ASIR) was used as additional dose reduction technique. Compariso n is made to prior examination from 08/25/2020 (pelvis only). FINDINGS: There is deep ulceration overlying the sacrum and coccyx, was present on prior study. This extends to the bone where there is evidence of prior sacrococcygeal surgical resection or prior erosi on. Current bone margins are well-defined, no definite acute osteomyelitis identified. The liver, spleen, adrenal glands and pancreas are unremarkable. Gallbladder is unremarkable. No bi liary obstruction. Unremarkable left nephrectomy bed. There are right renal lesions of varying densi ties, could be cysts and hemorrhagic cyst but renal cell cancer not excludable. Largest indeterminate lesion is 2.7 cm and the superior pole. Small right nephrolithiasis. The uterus is not identified a nd has likely been surgically resected. The bladder is unremarkable. There is no retroperitoneal or pelvic lymphadenopathy. There is moderate scattered arteriosclerotic disease. The appendix is not positively visualized. There is no pericecal inflammatory change to suggest appe ndicitis. There is moderate descending and sigmoid colonic diverticulosis. There is no adjacent infl ammatory change to suggest diverticulitis. The stomach and small bowel are unremarkable. There is ex pected amount of colonic stool. No free intraperitoneal gas. There is cardiomegaly. The main, garima tral pulmonary arteries are dilated which can indicate elevated pulmonary arterial pressure, pulmonar y arterial hypertension. The lung bases are unremarkable. IMPRESSION: 1. Indeterminate right renal lesions in patient's remaining kidney (left nephrectomy). Right nephro lithiasis. No hydronephrosis. 2. Deep sacrococcygeal ulceration contiguous to bone but without acute erosive change identified. 3. Moderate colonic diverticulosis. 4. Cardiomegaly. Pulmonary arterial hypertension. Reviewed, dictated and finalized at location A. E ASSEMBLER IMPRESSION: 1. Indeterminate right renal lesions in patient's remaining kidney (left nephr ectomy). Right nephrolithiasis. No hydronephrosis. 2. Deep sacrococcygeal ulceration contiguous to bone but without acute erosive change identified. 3. Moderate colonic diverticulosis. 4. Cardiomegaly. Pulmonary arterial hypertension.
[2021-08-22 10:13] VITALS: BP 153/64; PULSE 73; RESP 18; TEMP 36.1; O2SAT 100
[2021-08-22 12:40] VITALS: BP 183/43; PULSE 88; RESP 20; TEMP 36.3; O2SAT 96
--- NOTE | 2021-08-22 14:12 | ED.GIBLEED ---
HPI - GI Bleed General Chief complaint: GI Bleed <Trena Jaramillo MD - Last Filed: 08/22/21 17:47> Stated complaint: rectal bleeding <Trena Jaramillo MD - Last Filed: 08/22/21 17:47> Time Seen by Provider: 08/22/21 14:11 <Trena Jaramillo MD - Last Filed: 08/22/21 17:47> Source: patient <Trena Jaramillo MD - Last Filed: 08/22/21 17:47> Mode of arrival: EMS <Trena Jaramillo MD - Last Filed: 08/22/21 17:47> Limitations: no limitations <Trena Jaramillo MD - Last Filed: 08/22/21 17:47> History of Present Illness HPI Narrative: Patient is an 81-year-old female with a history of hypertension, end-stage renal disease on Sunday, Sunday, Sunday dialysis, type 2 diabetes, anemia of chronic disease, presenting for evaluation of bright red blood per rectum. Patient states that she has had bright red blood per rectum and rectal pain over the past 2 days. Patient reports diarrhea the past 2 days. She reports that she has had some bright red and dark red blood present in her stool. Patient denies any fever, chills, shortness of breath. No lightheadedness or dizziness. No dysuria or hematuria. Patient does have a sacral ulcer which is being monitored by wound care/home health and she follows with [facility] surgery for this. Patient is not on any anticoagulation. Patient hospitalized for GI bleeding in June, ultimately had a colonoscopy that showed colonic polyps, diverticulosis without perforation, internal hemorrhoids. At that point, her hemoglobin stabilized and patient was safe for discharge. Patient does not recall the name of the dental equipment installer and servicer she has been following with. <Trena Jaramillo MD - Last Filed: 08/22/21 17:47> Related Data Home medications: Home Medications Medication Instructions Recorded Confirmed Mynephrocaps 1 cap PO DAILY 07/10/19 07/10/19 aspirin 81 mg PO DAILY 07/10/19 07/04/21 calcitriol 0.25 mcg PO 3XW 07/10/19 07/10/19 carvedilol [Coreg] 3.125 mg PO BID 07/10/19 07/04/21 folic acid-B complex,C no.17 1 tablet PO DAILY 07/10/19 07/10/19 levothyroxine 100 mcg PO DAILY 07/10/19 07/04/21 calcium acetate PO 01/12/20 gabapentin [Neurontin] 300 mg PO TID 01/12/20 07/04/21 pravastatin 40 mg PO HS 01/12/20 07/04/21 acetaminophen [Tylenol Arthritis 500 mg PO Q8H PRN 07/04/21 Pain] azelastine 0.1 INTRANASAL 07/04/21 azelastine 1 spray INTRANASAL Q12H 07/04/21 07/04/21 nitroglycerin 0.4 mg SUBLINGUAL Q10-15M PRN MDD 3 07/04/21 07/04/21 <Trena Jaramillo MD - Last Filed: 08/22/21 17:47> Allergies/Adverse reactions: Allergies Allergy/AdvReac Type Severity Reaction Status Date / Time morphine AdvReac Unknown Itching Verified 07/05/21 09:50 <Trena Jaramillo MD - Last Filed: 08/22/21 17:47> Review of Systems Review of Systems: CONSTITUTIONAL: Denies fever, chills, or sweats. EYES: Denies visual changes, redness, or discharge. ENT: Denies rhinorrhea, congestion, sore throat, or otalgia. CARDIOVASCULAR: Denies chest pain, palpitations, or edema. RESPIRATORY: Denies cough or dyspnea. GASTROINTESTINAL: Denies abdominal pain, nausea, vomiting; reports diarrhea. Reports rectal pain. GENITOURINARY: Denies dysuria or hematuria. SKIN: Denies rash or itching. MUSCULOSKELETAL: Denies back pain, joint pain, or myalgia. NEUROLOGIC: Denies headache, numbness, or weakness. <Trena Jaramillo MD - Last Filed: 08/22/21 17:47> [facility] Past Medical History Medical History: Medical History Acute on chronic blood loss anemia Anemia Arthritis CAD (coronary artery disease) Cataract, right eye CHF (congestive heart failure) Chronic anemia Dialysis patient Diverticular hemorrhage Diverticulitis DM (diabetes mellitus) ESRD (end stage renal disease) Fibroids GI bleed History of angina History of GI diverticular bleed History of heart attack History of rectal polyps Hypercholesteremia Hy
[2021-08-22 15:47] LABS: Basophils Percent Auto 0.6 % (0.2-1.2); Eosinophils Absolute Auto 0.3 K/mm3 (0-0.3); Hematocrit 33.2 % (37.0-47.0); Hemoglobin 10.2 g/dL (12.0-15.0); Immature Granulocyte Absolute 0.02 K/mm3 (0.00-0.031); Immature Granulocyte Percent A 0.3 % (0-0.5); Lymphocytes Percent Auto 17.8 % (18.3-44.2); Mean Corpuscular HGB Conc 30.7 g/dl (32-36); Mean Corpuscular Hemoglobin 27.3 pg (26-34); Mean Platelet Volume 10.6 fl (7.4-10.4); Monocytes Absolute Auto 0.9 K/mm3 (0.1-0.6); Monocytes Percent Auto 13.2 % (2.6-8.5); Neutrophils Absolute Auto 4.3 K/mm3 (1.3-6.7); Neutrophils Percent Auto 64.1 % (45.5-73.1); Nucleated Red Blood Cells Perc 0.3 % (0.0-0.2); Platelet Count Result 157 k/mm3 (150-375); Red Blood Count 3.73 M/mm3 (4.2-5.4); White Blood Count 6.7 K/mm3 (4.5-10.0)
[2021-08-22] MEDS: ACETAMINOPHEN 500 MG TABLET 1000 MG PO (15:50)
[2021-08-22 16:30] LABS: INR 1.1
[2021-08-22 16:31] LABS: Partial Thromboplastin Time 29.2 SECONDS (22.3-36.8)
--- NOTE | 2021-08-22 16:36 | PC.NURSE ---
Per Aaron in lab, green top lab tube is hemolyzed. Per Dr. Jaramillo, run lab from this specimen. Aaron in Lab aware.
--- NOTE | 2021-08-22 17:06 | PC.NURSE ---
Per Aaron in Lab, both green top tubes drawn by Dr. Jaramillo were hemolyzed. Dr. Jaramillo aware.
--- NOTE | 2021-08-22 17:08 | PC.NURSE ---
Attempted to call military technology specialist x2 ,n/a.
[2021-08-22 17:11] LABS: Hepatitis B Surface Antigen Negative (Negative)
[2021-08-22 17:29] LABS: Hepatitis B Surface Anti Res Negative
--- NOTE | 2021-08-22 17:53 | PC.NURSE ---
Phleb. here , unable to obtain specimen.
[2021-08-22 18:00] VITALS: BP 159/69; PULSE 85; RESP 18; TEMP 36.6; O2SAT 97
[2021-08-22 19:38] VITALS: BP 167/54; PULSE 80; RESP 16; O2SAT 100
[2021-08-23 03:23] VITALS: BP 159/68; PULSE 76; RESP 14; O2SAT 100
--- NOTE | 2021-08-23 05:19 | PC.NURSE ---
report given to Liliana at [place] at this time.
[2021-08-23 06:53] VITALS: BP 150/84; PULSE 93; RESP 18; O2SAT 94
[2021-08-23 07:48] VITALS: RESP 16; O2SAT 97
== END 2021-08-23 07:52 ==
PROVIDERS: Emergency Medicine; Internal Medicine Nephrology; Emergency Provider Emergency Medicine; PCP Internal Medicine
DX: K92.1 Melena (principal); E11.22 Type 2 diabetes mellitus with diabetic chronic kidney disease; I13.2 Hypertensive heart and chronic kidney disease with heart failure and with stage 5 chronic kidney disease, or end stage renal disease; I50.9 Heart failure, unspecified; N18.6 End stage renal disease; Z99.2 Dependence on renal dialysis; D63.1 Anemia in chronic kidney disease; I25.10 Atherosclerotic heart disease of native coronary artery without angina pectoris; I25.2 Old myocardial infarction; M19.90 Unspecified osteoarthritis, unspecified site; Z87.19 Personal history of other diseases of the digestive system; E03.9 Hypothyroidism, unspecified; E78.00 Pure hypercholesterolemia, unspecified; H35.30 Unspecified macular degeneration; L89.153 Pressure ulcer of sacral region, stage 3; Z85.528 Personal history of other malignant neoplasm of kidney; Z98.41 Cataract extraction status, right eye; Z90.5 Acquired absence of kidney; Z96.653 Presence of artificial knee joint, bilateral; Z95.5 Presence of coronary angioplasty implant and graft; Z87.891 Personal history of nicotine dependence; I51.7 Cardiomegaly; N28.9 Disorder of kidney and ureter, unspecified; K57.90 Diverticulosis of intestine, part unspecified, without perforation or abscess without bleeding; Z79.82 Long term (current) use of aspirin
CPT/HCPCS: 36415; 74176; 85025; 85610; 85730; 86706; 86850; 86900; 86901; 87340; 99284; A9270

== ENCOUNTER 2021-08-23 08:50 | Inpatient (IN) | payer MEDICARE, OTHER, SELFPAY ==
[2021-08-23] VITALS (19 sets, daily range): BP systolic 121–136; BP diastolic 44–66; PULSE 75–132; RESP 16–18; TEMP 36.2–36.4; O2SAT 80–100; BMI 40.7
--- NOTE | ~2021-08-23 | CT_ITS ---
EXAMINATION: CT abdomen pelvis wo con DATE: 08/23/2021 10:09 INDICATION: Abdominal pain. Gastrointestinal hemorrhage. TECHNIQUE: Computed tomography (CT) of the abdomen and pelvis was performed without intravenous contr ast. Automated exposure control and iterative reconstruction technique were employed. The dose-length product was 1369.87 mGy-cm. COMPARISON: CT abdomen and pelvis 08/22/2021, pelvis CT 08/25/2020 FINDINGS: The visualized portions of the lung bases demonstrate groundglass opacities in the lower lo bes, right middle lobe, and lingula. There are trace pleural effusions. Cardiomegaly is noted. There are coronary artery calcifications. No pericardial effusion. There is a subxiphoid hernia containing fat and a portion of the liver. There are gallstones in the gallbladder, which is normal in size. The spleen, pancreas, and adrenal glands are normal. There are changes of left nephrectomy. Motion artif act obscures right kidney. There are masses in right kidney measuring soft tissue attenuation measuri ng up to 2.7 cm. There is diverticulosis of the colon without evidence of diverticulitis. There are n o dilated loops of bowel. The appendix is not visualized. There are no pathologically enlarged lymph nodes. There is no free intraperitoneal fluid. There is a chronic sacral decubitus ulcer with soft ti ssue gas again seen distal to the sacrum. There is chronic absence of the coccyx and distal sacrum, w hich may be chronic osteomyelitis or surgical change. There is moderate lumbar spondylosis. There are bridging endplate osteophytes at multiple levels in the spine, consistent with diffuse idiopathic sk eletal hyperostosis (DISH). IMPRESSION: 1. Right kidney masses, which may be hemorrhagic cysts or less likely neoplasm(s). Abdomen CT without and with contrast is recommended. 2. Chronic sacral decubitus ulcer. Chronic absence of the coccyx and distal sacrum, which may be surg ical change or chronic osteomyelitis. 3. Worsened groundglass opacities in the inferior lungs, which may be atelectasis or pneumonia (inclu ding COVID-19 pneumonia). 4. Subxiphoid ventral hernia containing fat and a portion of the liver. Reviewed, dictated and finalized at location A. X UNIX ADMINISTRATOR IMPRESSION: 1. Right kidney masses, which may be hemorrhagic cysts or less likely neoplasm( s). Abdomen CT without and with contrast is recommended. 2. Chronic sacral decubitus ulcer. Chronic absence of the coccyx and distal sac rum, which may be surgical change or chronic osteomyelitis. 3. Worsened groundglass opacities in the inferior lungs, which may be atelectas is or pneumonia (including COVID-19 pneumonia). 4. Subxiphoid ventral hernia containing fat and a portion of the liver.
--- NOTE | ~2021-08-23 | XR_ITS ---
XR chest 1V DATE: 08/23/2021 10:19 INDICATION: Leukocytosis. Weakness. TECHNIQUE: AP chest on 08/23/2021 at 1010 hours COMPARISON: 02/15/2018 AP and lateral chest FINDINGS: Cardiomegaly. Aortic calcification. Minimal infiltrate or atelectasis in the left lower lung. The lungs otherwise appear clear. No pleura l effusion or pulmonary vascular congestion or pneumothorax is evident. Postoperative change of the left upper quadrant of the abdomen. IMPRESSION: Minimal infiltrate or atelectasis in the left lower lung Cardiac megaly Aortic atherosclerosis Reviewed, dictated and finalized at location A. PROCESSING FACTORY WORKER
--- NOTE | 2021-08-23 09:34 | ED.GENADULT ---
HPI - General Adult General Chief complaint: GI Bleed Stated complaint: GI Bleed Time Seen by Provider: 08/23/21 09:10 Source: patient and EMS Mode of arrival: EMS Limitations: no limitations History of Present Illness HPI narrative: Patient is an 81-year-old female with a history of hypertension, end-stage renal disease on MWF dialysis, type 2 diabetes, anemia of chronic disease, presenting for evaluation of bright red blood per rectum. Patient states that she has had bright red blood per rectum that began Sunday. She reported a mixture of bright red and dark red blood present in her stool. She reports she was in this ER since Sunday and went back home via ambulance and was being transferred to a chair at assisted living when EMS noted a large amount of blood from her rectum and recommended return to the ER. Patient still denies any fever, chills, shortness of breath, abdominal pain, or chest pain. No lightheadedness or dizziness. No dysuria or hematuria. Patient does have a sacral ulcer which is being monitored by wound care/home health and she follows with [facility] surgery for this. Patient is not on any anticoagulation. Patient hospitalized for GI bleeding in June for rectal bleeding- colonoscopy showed colonic polyps, diverticulosis without perforation,and internal hemorrhoids. At that point, her hemoglobin stabilized and patient was safe for discharge. Patient does not recall the name of the surgical device sales representative who performed her colonoscopy, but reports the procedure was performed at [place]. Related Data Home Medications Medication Instructions Recorded Confirmed Mynephrocaps 1 cap PO DAILY 07/10/19 07/10/19 aspirin 81 mg PO DAILY 07/10/19 07/04/21 calcitriol 0.25 mcg PO 3XW 07/10/19 07/10/19 carvedilol [Coreg] 3.125 mg PO BID 07/10/19 07/04/21 folic acid-B complex,C no.17 1 tablet PO DAILY 07/10/19 07/10/19 levothyroxine 100 mcg PO DAILY 07/10/19 07/04/21 calcium acetate PO 01/12/20 gabapentin [Neurontin] 300 mg PO TID 01/12/20 07/04/21 pravastatin 40 mg PO HS 01/12/20 07/04/21 acetaminophen [Tylenol Arthritis 500 mg PO Q8H PRN 07/04/21 Pain] azelastine 0.1 INTRANASAL 07/04/21 azelastine 1 spray INTRANASAL Q12H 07/04/21 07/04/21 nitroglycerin 0.4 mg SUBLINGUAL Q10-15M PRN MDD 3 07/04/21 07/04/21 Allergies Allergy/AdvReac Type Severity Reaction Status Date / Time morphine AdvReac Unknown Itching Verified 07/05/21 09:50 Review of Systems Review of Systems: CONSTITUTIONAL: Denies fever, chills, or sweats. EYES: Denies visual changes, redness, or discharge. ENT: Denies rhinorrhea, congestion, sore throat, or otalgia. CARDIOVASCULAR: Denies chest pain, palpitations, or edema. RESPIRATORY: Denies cough or dyspnea. GASTROINTESTINAL: Reports rectal bleeding Denies abdominal pain, nausea, vomiting, or diarrhea. GENITOURINARY: Denies dysuria or hematuria. SKIN: Denies rash or itching. MUSCULOSKELETAL: Denies back pain, joint pain, or myalgia. NEUROLOGIC: Denies numbness, dizziness, or weakness. PSYCHIATRIC: Denies anxiety or depression. [facility] Past Medical History Medical History Acute on chronic blood loss anemia Anemia Arthritis CAD (coronary artery disease) Cataract, right eye CHF (congestive heart failure) Chronic anemia Dialysis patient Diverticular hemorrhage Diverticulitis DM (diabetes mellitus) ESRD (end stage renal disease) Fibroids GI bleed History of angina History of GI diverticular bleed History of heart attack History of rectal polyps Hypercholesteremia Hypertension Hypothyroid Macular degeneration lt Personal history of kidney cancer Rectal bleeding Renal disease Ulcer Surgical History Surgical History History of appendectomy History of cataract surgery rt History of hysterectomy History of nephrectomy, left History of total bilateral knee replacement Hx of cardiac cath with
[2021-08-23 09:40] LABS: Basophils Percent Auto 0.3 % (0.2-1.2); Eosinophils Percent Auto 0.2 % (0-4.4); Hematocrit 28.8 % (37.0-47.0); Hemoglobin 9.2 g/dL (12.0-15.0); Immature Granulocyte Absolute 0.08 K/mm3 (0.00-0.031); Immature Granulocyte Percent A 0.6 % (0-0.5); Lymphocytes Absolute Auto 0.32 K/mm3 (0.9-3.2); Lymphocytes Percent Auto 2.6 % (18.3-44.2); Mean Corpuscular HGB Conc 31.9 g/dl (32-36); Mean Corpuscular Hemoglobin 27.6 pg (26-34); Mean Corpuscular Volume 86.5 fl (80-100); Monocytes Absolute Auto 0.7 K/mm3 (0.1-0.6); Monocytes Percent Auto 5.7 % (2.6-8.5); Neutrophils Absolute Auto 11.2 K/mm3 (1.3-6.7); Neutrophils Percent Auto 90.6 % (45.5-73.1); Nucleated Red Blood Cells Perc 0.2 % (0.0-0.2); Platelet Count Result 170 k/mm3 (150-375); Red Blood Count 3.33 M/mm3 (4.2-5.4); Red Cell Distribution Width 15.9 % (11.5-14.5); White Blood Count 12.4 K/mm3 (4.5-10.0)
[2021-08-23 09:48] LABS: INR 1.2; Partial Thromboplastin Time 30.1 SECONDS (22.3-36.8); Prothrombin Time 14.9 Seconds (11.1-14.7)
[2021-08-23 09:54] LABS: Alanine Aminotransferase 13 U/L (4-35); Albumin Level 3.8 g/dL (3.5-5.1); Anion Gap 18 mmol/L (8-16); Bilirubin,Total 0.8 mg/dL (0.2-1.3); Blood Urea Nitrogen 56 mg/dL (7-17); Calcium 6.4 mg/dL (8.4-10.2); Carbon Dioxide 18 mmol/L (22-30); Chloride 98 mmol/L (98-107); Estimated CRCL calculation 6 ml/min; Estimated Glomerular Filt Rate 5; Glucose 74 mg/dL (65-110); Sodium 134 mmol/L (137-145)
--- NOTE | 2021-08-23 10:18 | PM.CNNEP ---
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 Last dialysis was last Sunday. She had been due for dialysis yesterday. Presented to the emergency room yesterday with bloody stools. She has a history of diverticulosis with diverticular bleeds from the past. She had a recent similar admission and had required multiple blood transfusions. She was deemed to be stable enough for discharge yesterday from the emergency room back to [place]. However upon going that she continued to have loose stools mixed with blood. Maroon in color. No abdominal pain. There is no reported hematemesis. Patient has no orthostasis symptomatology.. She is to be admitted for further management for her ongoing GI bleed. We estimate ongoing renal failure needs. There is a drop in hemoglobin. since [facility] form 10 to 9 range Review of Systems Review of Systems: recent such presentation, no new changes otherwise All systems reviewed & are unremarkable except as noted in HPI and below PMFSH Past Medical History Medical History Acute on chronic blood loss anemia Anemia Arthritis CAD (coronary artery disease) Cataract, right eye CHF (congestive heart failure) Chronic anemia Dialysis patient Diverticular hemorrhage Diverticulitis DM (diabetes mellitus) ESRD (end stage renal disease) Fibroids GI bleed History of angina History of GI diverticular bleed History of heart attack History of rectal polyps Hypercholesteremia Hypertension Hypothyroid Macular degeneration lt Personal history of kidney cancer Rectal bleeding Renal disease Ulcer Surgical History Surgical History History of appendectomy History of cataract surgery rt History of hysterectomy History of nephrectomy, left History of total bilateral knee replacement Hx of cardiac cath with stent placement Family History Family History Mother Heart problem Diabetes mellitus Social History Social History Smoking status: Former smoker Tobacco type: cigarettes Additional smoking assessment comments: quit 50 yrs ago Alcohol intake: current Drinks per week: 1 Substance use: never Gender identity (if verbalized by the patient): Female Spiritual care concerns: No Meds Home Medications and Allergies Home Medications Medication Instructions Recorded Confirmed Type Mynephrocaps 1 cap PO DAILY 07/10/19 07/10/19 History aspirin 81 mg PO DAILY 07/10/19 07/04/21 History calcitriol 0.25 mcg PO 3XW 07/10/19 07/10/19 History carvedilol [Coreg] 3.125 mg PO BID 07/10/19 07/04/21 History folic acid-B complex,C no.17 1 tablet PO DAILY 07/10/19 07/10/19 History levothyroxine 100 mcg PO DAILY 07/10/19 07/04/21 History calcium acetate PO 01/12/20 History gabapentin [Neurontin] 300 mg PO TID 01/12/20 07/04/21 History pravastatin 40 mg PO HS 01/12/20 07/04/21 History tramadol 50 mg PO Q6H PRN #20 tablet 01/13/20 Rx lidocaine
--- NOTE | 2021-08-23 13:33 | PC.NURSE ---
pt remains in dialysis
--- NOTE | 2021-08-23 15:08 | PC.NURSE ---
return to ed from dialysis. rapid covid swab obtained. pt states is feeling better. pending admission.
[2021-08-23 15:23] LABS: EDCOVIDSCREEN Negative (Negative)
--- NOTE | 2021-08-23 15:35 | PM.IMHP ---
H&P: HPI History of Present Illness Date/Time: 08/23/21 14:30 Chief Complaint: Lower GI bleeding. Narrative: This is an 81-year-old lady with a history including but not limited to ESRD on Sunday, Sunday, Sunday dialysis schedule, hypertension, type 2 diabetes, anemia of chronic disease, presenting for evaluation of bright red blood per rectum. The patient was in her usual state of health until last Sunday. Patient reports bright red blood per rectum that began Sunday. She reported a mixture of bright red and dark red blood present in her stool. She reports she was in this ER since Sunday and went back home via ambulance and was being transferred to a chair at assisted living when EMS noted a large amount of blood from her rectum and recommended return to the ER. Patient still denies any fever, chills, shortness of breath, abdominal pain, or chest pain. No lightheadedness or dizziness. No dysuria or hematuria. Patient does have a sacral ulcer which is being monitored by wound care/home health and she follows with [facility] surgery for this. Patient is not on any anticoagulation. Patient hospitalized for GI bleeding in June for rectal bleeding- colonoscopy showed colonic polyps, diverticulosis without perforation,and internal hemorrhoids. At that point, her hemoglobin stabilized and patient was safe for discharge. Patient was seen was seen by . Patient was seen and examined during hemodialysis. She had transient hypotensive episode with BP of 98/52 and heart rate 84. Due to hypotension, the ultrafiltration target was revised from 2.5 L to 1 L target. Review of Systems Review of Systems: All systems reviewed & are unremarkable except as noted in HPI and below Constitutional: Constitutional: Reports as per HPI, Reports fatigue and Reports weakness Eyes: Eyes: Reports as per HPI and Denies blurry vision ENT: Reports as per HPI and Denies epistaxis Cardiovascular: Cardiovascular: Reports as per HPI and Denies chest pain Respiratory: Respiratory: Reports as per HPI and Denies dyspnea Gastrointestinal: Gastrointestinal: Reports as per HPI, Denies abdominal pain, Reports hematochezia, Denies diarrhea, Denies nausea and Denies vomiting Genitourinary: Genitourinary: Reports no additional female genitourinary complaints and Reports as per HPI Musculoskeletal: Musculoskeletal: Reports no additional musculoskeletal complaints and Reports as per HPI Integumentary/Breasts: Skin/Breast: Reports system reviewed and no additional complaints, except as docu and Reports as per HPI Neurologic: Reports system reviewed and no additional complaints, except as documented and Reports as per HPI Psychiatric: Psychiatric: Reports no additional psychiatric complaints and Reports as per HPI [facility] Past Medical History Medical History (Updated 08/23/21 @ 21:45 by Selene Sherman MD) Acute on chronic blood loss anemia Anemia Arthritis CAD (coronary artery disease) Cataract, right eye CHF (congestive heart failure) Chronic anemia Dialysis patient Diverticular hemorrhage Diverticulitis DM (diabetes mellitus) ESRD (end stage renal disease) Fibroids GI bleed History of angina History of GI diverticular bleed History of heart attack History of rectal polyps Hypercholesteremia Hypertension Hypothyroid Macular degeneration lt Personal history of kidney cancer Rectal bleeding Renal disease Ulcer Surgical History Surgical History History of appendectomy History of cataract surgery rt History of hysterectomy History of nephrectomy, left History of total bilateral knee replacement Hx of cardiac cath with stent placement Family History Family History Mother Heart problem Diabetes mellitus Social History Social History Smoking status: Former smoker Additional smoking asses
--- NOTE | 2021-08-23 16:07 | ADMGEN ---
This patient, Aleah Dougherty, was admitted to 2 Medical Room 256-. Patient/family oriented to hospital policies and general routines including ID bracelet, bed and alarms, visiting hours, pain management, procedures, bathroom and other care routines, personal items, smoking policy, room service/diet, and visiting hours. Information on how to activate the Rapid Response Team has been discussed. Patient/Family are encouraged to report perceived risks to care and to ask questions if they do not understand what they are told or what they should do.
[2021-08-23] MEDS: carvediloL 3.125 MG TABLET PO (22:29)
[2021-08-23] MEDS: GABAPENTIN 300 MG CAPSULE PO (22:29)
[2021-08-23] MEDS: AZELASTINE HCL NASAL 0.1% 137 MCG/SPR 30 ML BTL 1 SPRAY NASAL (22:30)
[2021-08-23] MEDS: PRAVASTATIN SODIUM 20 MG TABLET 40 MG PO (22:31)
[2021-08-23 22:48] LABS: Hematocrit 25.7 % (37.0-47.0); Hemoglobin 8.1 g/dL (12.0-15.0)
[2021-08-24 03:13] VITALS: BP 120/46; PULSE 71; RESP 18; TEMP 35.9; O2SAT 97
[2021-08-24] MEDS: LEVOTHYROXINE SODIUM 100 MCG TABLET PO (06:00)
[2021-08-24 06:31] LABS: Anion Gap 11 mmol/L (8-16); Blood Urea Nitrogen 29 mg/dL (7-17); Calcium 6.8 mg/dL (8.4-10.2); Carbon Dioxide 27 mmol/L (22-30); Chloride 99 mmol/L (98-107); Estimated CRCL calculation 9 ml/min; Estimated Glomerular Filt Rate 8; Glucose 89 mg/dL (65-110); Potassium 4.5 mmol/L (3.4-5.0); Sodium 137 mmol/L (137-145)
[2021-08-24 06:39] LABS: Hematocrit 26.1 % (37.0-47.0); Hemoglobin 8.1 g/dL (12.0-15.0); Immature Platelet Fraction Pct 7.8 % (0.9-11.2); Mean Corpuscular Hemoglobin 27.6 pg (26-34); Mean Corpuscular Volume 88.8 fl (80-100); Mean Platelet Volume 12.8 fl (7.4-10.4); Platelet Count Result 121 k/mm3 (150-375); Red Blood Count 2.94 M/mm3 (4.2-5.4); Red Cell Distribution Width 15.9 % (11.5-14.5); White Blood Count 10.1 K/mm3 (4.5-10.0)
[2021-08-24 08:00] VITALS: PULSE 71; RESP 18; O2SAT 97
--- NOTE | 2021-08-24 08:38 | PM.IMPN ---
Progress Note: A&P Assessment and Plan (1) Acute on chronic blood loss anemia: Code(s): D62 - Acute posthemorrhagic anemia Status: Acute Assessment and Plan: Patient reports lower GI bleeding. This is likely secondary to acute diverticular bleeding. Hemoglobin stable on admission. Monitor serial hemoglobin. Transfuse as needed. GI consult. Close clinical monitoring and supportive care. There is likely an element of anemia of chronic disease in a patient with end-stage renal disease. (2) Hematochezia: Code(s): K92.1 - Melena Status: Inactive Assessment and Plan: Previously h patient was diagnosed with colonic polyp, diverticulosis and internal hemorrhoid. She underwent removal of polyp on July 05, 2021. Per GI consult, there is no indication for colonoscopy. Will continue to monitor closely.. (3) ESRD (end stage renal disease): Code(s): N18.6 - End stage renal disease Status: Acute Assessment and Plan: End-stage renal disease, presenting with lower GI bleed, acute blood loss anemia and history of diverticular bleeding. Anemia of chronic kidney disease Secondary hyperparathyroidism, history of parathyroidectomy with subsequent hypercalcemia Continue hemodialysis per home schedule by Nephrology. (4) Diverticular hemorrhage: Code(s): K57.31 - Diverticulosis of large intestine without perforation or abscess with bleeding Status: Acute Assessment and Plan: Patient has a history of diverticulosis. Her recent colonoscopy in June 2021 with colonic polyp which was excised. There is no emergent indication for colonoscopy. Continue to monitor clinically. (5) Pressure injury of coccygeal region, stage 3: Code(s): L89.153 - Pressure ulcer of sacral region, stage 3 Status: Acute Assessment and Plan: Wound consult. (6) Arthritis: Code(s): M19.90 - Unspecified osteoarthritis, unspecified site Status: Acute Assessment and Plan: Pain management as needed. Resume home regimen. (7) DM (diabetes mellitus): Code(s): E11.9 - Type 2 diabetes mellitus without complications Status: Acute Assessment and Plan: He insulin sliding scale coverage and monitor Accu-Cheks. Additional Plan DVT prophylaxis with bilateral sequential compression device. Subjective Date/time seen: 08/24/21 08:35 S: Patient is examined at the bedside; she denies any complaints. Review of Systems Review of Systems: All systems reviewed & are unremarkable except as noted in HPI and below Constitutional: Constitutional: Reports as per HPI, Reports fatigue and Reports weakness Eyes: Eyes: Reports as per HPI and Denies blurry vision ENT: Reports as per HPI and Denies epistaxis Cardiovascular: Cardiovascular: Reports as per HPI, Denies chest pain and Denies dyspnea Respiratory: Respiratory: Reports as per HPI and Denies dyspnea Gastrointestinal: Gastrointestinal: Reports as per HPI, Denies abdominal pain, Reports hematochezia, Denies diarrhea, Denies nausea and Denies vomiting Genitourinary: Genitourinary: Reports no additional female genitourinary complaints and Reports as per HPI Musculoskeletal: Musculoskeletal: Reports no additional musculoskeletal complaints and Reports as per HPI Integumentary/Breasts: Skin/Breast: Reports system reviewed and no additional complaints, except as docu and Reports as per HPI Neurologic: Reports system reviewed and no additional complaints, except as documented, Reports as per HPI and Reports weakness Psychiatric: Psychiatric: Reports no additional psychiatric complaints and Reports as per HPI Endocrine: Endocrine: Reports fatigue Exam Narrative: GENERAL: Well-nourished, and in no acute distress. Not diaphoretic or pale. HEAD: Normocephalic, atraumatic. EYES: PERRLA and EOMI. CHEST: No respiratory distress. No wheezes rales or rhonchi HEART: Regular rate and rhythm. ABDOMEN: S
[2021-08-24 09:25] VITALS: PULSE 75
[2021-08-24] MEDS: calcitrioL 0.25 MCG CAPSULE PO (09:25)
[2021-08-24] MEDS: carvediloL 3.125 MG TABLET PO ×2 (09:25→21:00)
[2021-08-24] MEDS: VITAMIN B CMPLX/VIT C/FOLIC AC 1 CAPSULE 1 CAP PO (09:27)
[2021-08-24] MEDS: GABAPENTIN 300 MG CAPSULE PO ×3 (09:27→18:29)
[2021-08-24 13:11] VITALS: BMI 40.7
--- NOTE | 2021-08-24 14:03 | WPDGICN ---
Assessment and Plan Assessment and plan (1) Acute on chronic blood loss anemia: Code(s): D62 - Acute posthemorrhagic anemia Status: Acute Assessment and Plan: continue to monitor h/h most likely again related to diverticular bleeding, had a recent colonoscopy therefore no need to repeat- hoping that will slow down again, of course if more severe bleeding or she becomes quite symptomatic then we can perform another colonoscopy no BM today advance diet (2) Diverticular hemorrhage: Code(s): K57.31 - Diverticulosis of large intestine without perforation or abscess with bleeding Status: Acute Assessment and Plan: most likely cause of rectal bleeding again monitor, if hb stable and no more bleeding probably can go home tomorrow (3) ESRD (end stage renal disease): Code(s): N18.6 - End stage renal disease Status: Acute Assessment and Plan: dialysis by nephrology (4) DM (diabetes mellitus): Code(s): E11.9 - Type 2 diabetes mellitus without complications Status: Acute (5) Hypertension: Code(s): I10 - Essential (primary) hypertension Status: Acute GI Consult Note Consult date/time: 08/24/21 14:03 Reason for consult: rectal bleeding HPI: Aleah Dougherty is a 81 year old female with history of hypertension, coronary artery disease o baby aspirin, end-stage renal disease on hemodialysis Sunday and Fridays, congestive heart failure, diabetes mellitus and previous history of lower GIB in 2018 when had colonoscopy that showed diverticulosis +/- hemorrhoids then 06/2021 she was also admitted with diverticular bleeding (I performed colonoscopy- stigmata of previous bleeding and did not find source of active bleeding). She again noted brbpr few days ago when she came to ER, discharged to her assisted living facility but staff noted even more rectal bleeding and sent back, finally admitted to hospital. She denies any BM today. Hb 8.1, on admission 10 but it has been in low 8's previously. No abdominal pain, she is comfortable. Review of Systems Constitutional: Constitutional: Denies body ache(s) Eyes: Eyes: Denies blurry vision ENT: Reports Normal hearing present Cardiovascular: Cardiovascular: Denies chest pain Respiratory: Respiratory: Denies dyspnea Gastrointestinal: Gastrointestinal: Denies abdominal pain and Reports hematochezia Genitourinary: Comments: on dialysis Musculoskeletal: Musculoskeletal: Denies neck pain Integumentary/Breasts: Skin/Breast: Denies dry skin Neurologic: Denies headache(s) Psychiatric: Psychiatric: Denies behavioral changes [facility] Past Medical History Medical History (Updated 08/24/21 @ 00:01 by Marya Real) Acute on chronic blood loss anemia Anemia Arthritis CAD (coronary artery disease) Cataract, right eye CHF (congestive heart failure) Chronic anemia Dialysis patient Diverticular hemorrhage Diverticulitis DM (diabetes mellitus) ESRD (end stage renal disease) Fibroids GI bleed History of angina History of GI diverticular bleed History of heart attack History of rectal polyps Hypercholesteremia Hypertension Hypothyroid Macular degeneration lt Personal history of kidney cancer Rectal bleeding Renal disease Ulcer Surgical History Surgical History History of appendectomy History of cataract surgery rt History of hysterectomy History of nephrectomy, left History of total bilateral knee replacement Hx of cardiac cath with stent placement Family History Family History Mother Heart problem Diabetes mellitus Social History Social History Smoking status: Former smoker Additional smoking assessment comments: quit 50 yrs ago Alcohol intake: current Drinks per week: 1 Substance use: never Substance use type: does not u
[2021-08-24 15:10] VITALS: PULSE 62; RESP 18; TEMP 36.2; O2SAT 99
[2021-08-24] MEDS: SILVERGEL (ELTA) 45 ML 1 APPLIC TOPICAL (15:39)
[2021-08-24 15:45] VITALS: BP 144/52
[2021-08-24 19:33] VITALS: BP 121/47; PULSE 71; RESP 18; TEMP 36.9; O2SAT 100
[2021-08-24] MEDS: PRAVASTATIN SODIUM 20 MG TABLET 40 MG PO (21:00)
[2021-08-25] VITALS (14 sets, daily range): BP systolic 86–186; BP diastolic 43–77; PULSE 58–80; RESP 18–20; TEMP 35.5–37.2; O2SAT 99–100
[2021-08-25] MEDS: LEVOTHYROXINE SODIUM 100 MCG TABLET PO (05:36)
[2021-08-25 06:06] LABS: Hematocrit 25.3 % (37.0-47.0); Hemoglobin 7.9 g/dL (12.0-15.0); Mean Corpuscular HGB Conc 31.2 g/dl (32-36); Mean Corpuscular Hemoglobin 27.5 pg (26-34); Mean Corpuscular Volume 88.2 fl (80-100); Mean Platelet Volume 11.9 fl (7.4-10.4); Platelet Count Result 110 k/mm3 (150-375); Red Blood Count 2.87 M/mm3 (4.2-5.4); Red Cell Distribution Width 15.9 % (11.5-14.5); White Blood Count 6.7 K/mm3 (4.5-10.0)
[2021-08-25 06:21] LABS: Anion Gap 9 mmol/L (8-16); Blood Urea Nitrogen 42 mg/dL (7-17); Calcium 6.5 mg/dL (8.4-10.2); Carbon Dioxide 27 mmol/L (22-30); Chloride 97 mmol/L (98-107); Estimated CRCL calculation 7 ml/min; Estimated Glomerular Filt Rate 7; Glucose 93 mg/dL (65-110); Potassium 4.7 mmol/L (3.4-5.0); Sodium 133 mmol/L (137-145)
[2021-08-25 06:35] LABS: Iron 22 ug/dL (37-170)
[2021-08-25 06:45] LABS: Percent Iron Saturation 20 % (20-50)
--- NOTE | 2021-08-25 07:53 | PM.IMPN ---
Progress Note: A&P Assessment and Plan (1) Acute on chronic blood loss anemia: Code(s): D62 - Acute posthemorrhagic anemia Status: Acute Assessment and Plan: Patient admitted with lower GI bleeding. This is likely secondary to acute diverticular bleeding. Hemoglobin stable on admission. Monitor serial hemoglobin. Transfuse as needed. GI consult. Close clinical monitoring and supportive care. There is likely an element of anemia of chronic disease in a patient with end-stage renal disease. (2) Hematochezia: Code(s): K92.1 - Melena Status: Inactive Assessment and Plan: Previously the patient was diagnosed with colonic polyp, diverticulosis and internal hemorrhoid. She underwent removal of polyp on July 05, 2021. Per GI consult, there is no indication for colonoscopy. Hopefully diverticular bleed can disappear spontaneously. Will continue to monitor closely.. (3) ESRD (end stage renal disease): Code(s): N18.6 - End stage renal disease Status: Acute Assessment and Plan: End-stage renal disease, presenting with lower GI bleed, acute blood loss anemia and history of diverticular bleeding. Anemia of chronic kidney disease. Iron stores are low. Give Venofer 300 mg daily x3 doses. Give Epogen during dialysis. Secondary hyperparathyroidism, history of parathyroidectomy with subsequent hypercalcemia Continue hemodialysis per home schedule by Nephrology. (4) Diverticular hemorrhage: Code(s): K57.31 - Diverticulosis of large intestine without perforation or abscess with bleeding Status: Acute Assessment and Plan: Patient has a history of diverticulosis. Her recent colonoscopy in June 2021 with colonic polyp which was excised. There is no emergent indication for colonoscopy. Continue to monitor clinically. hemoglobin slowly drift thing down to 7.9 today. (5) Pressure injury of coccygeal region, stage 3: Code(s): L89.153 - Pressure ulcer of sacral region, stage 3 Status: Acute Assessment and Plan: Wound consult. (6) Arthritis: Code(s): M19.90 - Unspecified osteoarthritis, unspecified site Status: Acute Assessment and Plan: Pain management as needed. Resume home regimen. (7) DM (diabetes mellitus): Code(s): E11.9 - Type 2 diabetes mellitus without complications Status: Acute Assessment and Plan: Continue insulin sliding scale coverage and monitor Accu-Cheks. Additional Plan DVT prophylaxis with bilateral sequential compression device. Subjective Date/time seen: 08/25/21 07:33 S: Patient is examined at the bedside; she denies any complaints. Review of Systems Review of Systems: All systems reviewed & are unremarkable except as noted in HPI and below Constitutional: Constitutional: Reports as per HPI, Reports fatigue and Reports weakness Eyes: Eyes: Reports as per HPI and Denies blurry vision ENT: Reports as per HPI and Denies epistaxis Cardiovascular: Cardiovascular: Reports as per HPI, Denies chest pain and Denies dyspnea Respiratory: Respiratory: Reports as per HPI and Denies dyspnea Gastrointestinal: Gastrointestinal: Reports as per HPI, Denies abdominal pain, Reports hematochezia, Denies diarrhea, Denies nausea and Denies vomiting Genitourinary: Genitourinary: Reports no additional female genitourinary complaints and Reports as per HPI Musculoskeletal: Musculoskeletal: Reports no additional musculoskeletal complaints and Reports as per HPI Integumentary/Breasts: Skin/Breast: Reports system reviewed and no additional complaints, except as docu and Reports as per HPI Neurologic: Reports system reviewed and no additional complaints, except as documented, Reports as per HPI and Reports weakness Psychiatric: Psychiatric: Reports no additional psychiatric complaints and Reports as per HPI Endocrine: Endocrine: Reports fatigue Exam Narrative: GENERAL: Well-nourished,
[2021-08-25] MEDS: SILVERGEL (ELTA) 45 ML 1 APPLIC TOPICAL (09:44)
--- NOTE | 2021-08-25 11:58 | WPDGIPROGNO ---
Progress Note: A&P Assessment and Plan (1) Acute on chronic blood loss anemia: Code(s): D62 - Acute posthemorrhagic anemia Status: Acute Assessment and Plan: hb low but stable, now getting iv iron also component of chronic anemia from CKD (2) Diverticular hemorrhage: Code(s): K57.31 - Diverticulosis of large intestine without perforation or abscess with bleeding Status: Acute Assessment and Plan: no more blood in stools probably she can go home by GI standpoint and monitor h/h as outpatient no need to repeat another colonoscopy (3) ESRD (end stage renal disease): Code(s): N18.6 - End stage renal disease Status: Acute Assessment and Plan: dialysis as usual (4) DM (diabetes mellitus): Code(s): E11.9 - Type 2 diabetes mellitus without complications Status: Acute (5) Pressure injury of coccygeal region, stage 3: Code(s): L89.153 - Pressure ulcer of sacral region, stage 3 Status: Acute Subjective Date/time seen: 08/25/21 11:58 Interval history: patient says that BM yesterday without blood, no new issues today. Review of Systems Review of Systems: All systems reviewed & are unremarkable except as noted in HPI and below Exam Const: General: comfortable and no acute distress HENMT: General nose exam: Normal nares present Eyes: Sclera: sclerae normal Resp: Auscultation: clear to auscultation bilaterally Cardio: Rate: regular rate GI: Inspection: non-distended GI Palp: Yes Soft to palpation and No Guarding due to palpation present (GI) Auscultation: normal bowel sounds Skin: General skin exam: no rashes or lesions noted Neuro: Speech: normal speech Motor exam (neuro): Normal motor muscle tone present throughout Extrem: General: normal to inspection Psych: Mental Status: mental status grossly normal Objective Data Vital Signs Vital Signs: Vital Signs - 24 hr 08/24/21 15:10 08/24/21 15:45 08/24/21 19:33 Temperature 97.1 F L 98.4 F Pulse Rate 62 71 Respiratory Rate 18 18 Blood Pressure 144/52 H 121/47 L Pulse Oximetry 99 100 08/25/21 03:11 Temperature 97.8 F Pulse Rate 62 Respiratory Rate 18 Blood Pressure 128/54 L Pulse Oximetry 100 Intake/Output Intake/Output: Intake & Output 08/22/21 08/23/21 08/24/21 08/25/21 23:59 23:59 23:59 23:59 Intake Total 100 950 570 Output Total 0 Balance 100 950 570 Meds/Results Medications: Active Medications Generic Name Dose Route Start Last Admin Trade Name Freq PRN Reason Stop Dose Admin Acetaminophen 500 mg 08/23/21 21:50 Acetaminophen 500 Mg Tablet PO Q8H PRN Pain (Scale Score 1-3) Hydrocodone Bitart/Acetaminophen 1 tab 08/23/21 21:50 Hydrocodone/Acetaminophen (*Crx) 5-325 Mg Tablet PO Q6H PRN Pain Rated 4-6 Aspirin 81 mg 08/24/21 09:00 Aspirin 81 Mg Chewable Tablet PO DAILY [facility] Azelastine HCl 1 spray 08/23/21 22:15 08/24/21 21:02 Azelastine Hcl Nasal 0.1% 137 Mcg/Spr 30 Ml Btl NASAL Not Given Q12HR [facility] Calcitriol 0.25 mcg 08/24/21 09:00 08/24/21 09:25 Calcitriol 0.25 Mcg Capsule PO 0.25 mcg MoWeFr@0900 [facility] Administration Carvedilol 3.125 mg 08/23/21 22:00 08/24/21 21:00 Carvedilol 3.125 Mg Tablet PO 3.125 mg Q12HR MARY Administration Diphenhydramine HCl 25 mg 08/23/21 21:50 Diphenhydramine Hcl Cap 25 Mg Capsule PO Q6H PRN Itching Gabapentin 300 mg 08/23/21 22:10 08/24/21 18:29 Gabapentin 300 Mg Capsule PO 300 mg TID [facility] Administration Levothyroxine Sodium 112 mcg 08/26/21 06:30 Levothyroxine Sodium 112 Mcg Tablet PO DAILY@0630 [facility] Lidocaine 1 patch 08/25/21 09:00 Lidocaine 5% Patch TRANSDERM DAILY [facility] Multi-Ingred Cream/Lotion/Oil/Oint 1 applic 08/25/21 09:00 Eucerin Cream 120 Gm Jar TOPICAL DAILY [facility] Nitroglycerin 0.4 mg 08/23/21 22:11 Nitroglycerin Sl 0.4 Mg Tablet SUBLINGUAL Q5MIN
[2021-08-25] MEDS: LIDOCAINE 5% PATCH 1 PATCH TRANSDERM (12:37)
[2021-08-25] MEDS: EUCERIN CREAM 120 GM JAR 1 APPLIC TOPICAL (14:15)
[2021-08-25] MEDS: diphenhydrAMINE HCl CAP 25 MG CAPSULE PO (16:56)
--- NOTE | 2021-08-25 17:30 | PM.PNNEP ---
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 Today's dialysis supervised. -hemoglobin is stable. Will recheck hemoglobin tomorrow morning. -we will get back to regular dialysis schedule which is Sunday, Sunday, Sunday. She will be dialyzed tomorrow. -discussed with hospitalist. Patient is fine to be discharged tomorrow assuming things are stable -follow-up for ESRD and related knee Subjective Date/time seen: 08/25/21 17:30 Follow-up ESRD. No recurrence of GI bleeding Seen and examined on hemodialysis Feels fluid overloaded Review of Systems Review of Systems: Does not describe other symptoms Exam Narrative: Seen and examined on hemodialysis 08/25/2021: Stable with treatment, right upper arm AV graft in use, edematous legs, regular rate rhythm, lungs clear, equal breath sounds, no rales or wheeze, soft abdomen, alert oriented N/C, no tremor Objective Data Vital Signs Vital Signs: Vital Signs - 24 hr 08/24/21 19:33 08/25/21 03:11 08/25/21 14:02 Temperature 36.9 C 36.6 C 36.5 C Pulse Rate 71 62 64 Respiratory Rate 18 18 18 Blood Pressure 121/47 L 128/54 L 125/59 L Pulse Oximetry 100 100 99 Intake/Output Intake/Output: Intake & Output 08/22/21 08/23/21 08/24/21 08/25/21 23:59 23:59 23:59 23:59 Intake Total 002 394 9681 Output Total 0 Balance 515 548 5376 Meds/Results Medications: Active Medications Generic Name Dose Route Start Last Admin Trade Name Freq PRN Reason Stop Dose Admin Acetaminophen 500 mg 08/23/21 21:50 Acetaminophen 500 Mg Tablet PO Q8H PRN Pain (Scale Score 1-3) Hydrocodone Bitart/Acetaminophen 1 tab 08/23/21 21:50 Hydrocodone/Acetaminophen (*Crx) 5-325 Mg Tablet PO Q6H PRN Pain Rated 4-6 Aspirin 81 mg 08/24/21 09:00 Aspirin 81 Mg Chewable Tablet PO DAILY [facility] Azelastine HCl 1 spray 08/23/21 22:15 08/25/21 13:19 Azelastine Hcl Nasal 0.1% 137 Mcg/Spr 30 Ml Btl NASAL Not Given Q12HR [facility]ARY Calcitriol 0.25 mcg 08/24/21 09:00 08/24/21 09:25 Calcitriol 0.25 Mcg Capsule PO 0.25 mcg MoWeFr@0900 [facility] Administration Carvedilol 3.125 mg 08/23/21 22:00 08/24/21 21:00 Carvedilol 3.125 Mg Tablet PO 3.125 mg Q12HR [facility]ARY Administration Diphenhydramine HCl 25 mg 08/23/21 21:50 08/25/21 16:56 Diphenhydramine Hcl Cap 25 Mg Capsule PO 25 mg Q6H PRN Administration Itching Gabapentin 300 mg 08/23/21 22:10 08/24/21 18:29 Gabapentin 300 Mg Capsule PO 300 mg TID [facility]ARY Administration Sodium Chloride 1,000 mls @ 999 mls/hr 08/25/21 17:26 Normal Saline Iv IV CONT 08/25/21 18:26 .Q1H1M ONE Sodium Chloride 1,000 mls @ 0 mls/hr 08/25/21 17:26 Normal Saline Iv IV CONT 08/25/21 17:27 .Q0M ONE Per Protocol Levothyroxine Sodium 112 mcg 08/26/21 06:30 Levothyroxine Sodium 112 Mcg Tablet PO DAILY@0630 [facility] Lidocaine 1 patch 08/25/21 09:00 08/25/21 12:37 Lidocaine 5% Patch TRANSDERM 1 patch DAILY [facility] Administration Multi-Ingred Cream/Lotion/Oil/Oint 1 applic 08/25/21 09:00 08/25/21 14:15 Eucerin Cream 120 Gm Jar TOPICAL 1 applic DAILY [facility] Administration Nitroglycerin 0.4 mg 08/23/21 22:11 Nitroglycerin Sl 0.4 Mg Tablet SUBLINGUAL Q5MIN PRN Chest Pain Pravastatin Sodium 40 mg 08/23/21 22:15 08/24/21 21:00 Pravastatin Sodium 20 Mg Tablet PO 40 mg HS MARY Administration Silver Nitrate 1 applic 08/24/21 09:00 08/25/21 09:
[2021-08-25] MEDS: PRAVASTATIN SODIUM 20 MG TABLET 40 MG PO (22:28)
[2021-08-25] MEDS: carvediloL 3.125 MG TABLET PO (22:29)
--- NOTE | 2021-08-25 23:35 | PC.NURSE ---
2000 pt returned from dialysis
[2021-08-26] VITALS (18 sets, daily range): BP systolic 83–161; BP diastolic 36–76; PULSE 55–80; RESP 18–20; TEMP 36–36.6; O2SAT 97–100
[2021-08-26 05:43] LABS: Basophils Percent Auto 0.4 % (0.2-1.2); Eosinophils Absolute Auto 0.2 K/mm3 (0-0.3); Eosinophils Percent Auto 4.3 % (0-4.4); Hematocrit 25.3 % (37.0-47.0); Hemoglobin 7.8 g/dL (12.0-15.0); Immature Granulocyte Absolute 0.01 K/mm3 (0.00-0.031); Immature Granulocyte Percent A 0.2 % (0-0.5); Lymphocytes Absolute Auto 0.87 K/mm3 (0.9-3.2); Lymphocytes Percent Auto 15.6 % (18.3-44.2); Mean Corpuscular HGB Conc 30.8 g/dl (32-36); Mean Corpuscular Hemoglobin 26.8 pg (26-34); Mean Corpuscular Volume 86.9 fl (80-100); Mean Platelet Volume 12.2 fl (7.4-10.4); Monocytes Absolute Auto 1.1 K/mm3 (0.1-0.6); Monocytes Percent Auto 19.1 % (2.6-8.5); Neutrophils Absolute Auto 3.4 K/mm3 (1.3-6.7); Neutrophils Percent Auto 60.4 % (45.5-73.1); Nucleated Red Blood Cells Perc 0.4 % (0.0-0.2); Platelet Count Result 121 k/mm3 (150-375); Red Blood Count 2.91 M/mm3 (4.2-5.4); Red Cell Distribution Width 15.4 % (11.5-14.5); White Blood Count 5.6 K/mm3 (4.5-10.0)
[2021-08-26] MEDS: LEVOTHYROXINE SODIUM 112 MCG TABLET PO (06:00)
[2021-08-26 06:11] LABS: Albumin Level 3.3 g/dL (3.5-5.1); Anion Gap 7 mmol/L (8-16); Blood Urea Nitrogen 30 mg/dL (7-17); Calcium 6.6 mg/dL (8.4-10.2); Carbon Dioxide 31 mmol/L (22-30); Chloride 97 mmol/L (98-107); Estimated CRCL calculation 10 ml/min; Estimated Glomerular Filt Rate 10; Glucose 103 mg/dL (65-110); Phosphorus 5.1 mg/dL (2.5-4.5); Potassium 4.7 mmol/L (3.4-5.0); Sodium 135 mmol/L (137-145)
[2021-08-26] MEDS: carvediloL 3.125 MG TABLET PO (08:22)
[2021-08-26] MEDS: VITAMIN B CMPLX/VIT C/FOLIC AC 1 CAPSULE 1 CAP PO (08:22)
[2021-08-26] MEDS: AZELASTINE HCL NASAL 0.1% 137 MCG/SPR 30 ML BTL 1 SPRAY NASAL (08:22)
[2021-08-26] MEDS: GABAPENTIN 300 MG CAPSULE PO ×2 (08:23→12:37)
[2021-08-26] MEDS: calcitrioL 0.25 MCG CAPSULE PO (08:23)
[2021-08-26] MEDS: EUCERIN CREAM 120 GM JAR 1 APPLIC TOPICAL (08:23)
[2021-08-26] MEDS: SILVERGEL (ELTA) 45 ML 1 APPLIC TOPICAL (08:24)
--- NOTE | 2021-08-26 09:00 | PC.NURSE ---
PT to dialysis via bed report given to Sheila WOOD
--- NOTE | 2021-08-26 12:25 | PM.DS ---
DS: Admitting Diagnosis Discharge Date 08/26/2021 Admitting Diagnosis (1) Acute on chronic blood loss anemia: (2) Hematochezia: (3) ESRD (end stage renal disease): (4) Diverticular hemorrhage: (5) Pressure injury of coccygeal region, stage 3: (6) Arthritis: (7) DM (diabetes mellitus): DS: Discharge Diagnosis Discharge Diagnosis (1) Acute on chronic blood loss anemia: Code(s): D62 - Acute posthemorrhagic anemia Status: Acute Assessment and Plan: Patient admitted with lower GI bleeding. This is likely secondary to acute diverticular bleeding. Hemoglobin stable on admission. Monitor serial hemoglobin. Transfuse as needed. GI consult. Close clinical monitoring and supportive care. There is likely an element of anemia of chronic disease in a patient with end-stage renal disease. (2) Hematochezia: Code(s): K92.1 - Melena Status: Inactive Assessment and Plan: Previously the patient was diagnosed with colonic polyp, diverticulosis and internal hemorrhoid. She underwent removal of polyp on July 05, 2021. Per GI consult, there is no indication for colonoscopy. Hopefully diverticular bleed can disappear spontaneously. Will continue to monitor closely.. (3) ESRD (end stage renal disease): Code(s): N18.6 - End stage renal disease Status: Acute Assessment and Plan: End-stage renal disease, presenting with lower GI bleed, acute blood loss anemia and history of diverticular bleeding. Anemia of chronic kidney disease. Iron stores are low. Give Venofer 300 mg daily x3 doses. Give Epogen during dialysis. Secondary hyperparathyroidism, history of parathyroidectomy with subsequent hypercalcemia Continue hemodialysis per home schedule by Nephrology. (4) Diverticular hemorrhage: Code(s): K57.31 - Diverticulosis of large intestine without perforation or abscess with bleeding Status: Acute Assessment and Plan: Patient has a history of diverticulosis. Her recent colonoscopy in June 2021 with colonic polyp which was excised. There is no emergent indication for colonoscopy. Continue to monitor clinically. hemoglobin slowly drift thing down to 7.9 today. (5) Pressure injury of coccygeal region, stage 3: Code(s): L89.153 - Pressure ulcer of sacral region, stage 3 Status: Acute Assessment and Plan: Wound consult. (6) Arthritis: Code(s): M19.90 - Unspecified osteoarthritis, unspecified site Status: Acute Assessment and Plan: Pain management as needed. Resume home regimen. (7) DM (diabetes mellitus): Code(s): E11.9 - Type 2 diabetes mellitus without complications Status: Acute Assessment and Plan: Continue insulin sliding scale coverage and monitor Accu-Cheks. DS: Summary Hospital Course Reason for hospitalization: Lower GI bleeding. Hospital Course: Please refer to admission H&P. Briefly,this is an 81-year-old lady with a history including but not limited to ESRD on Sunday, Sunday, Sunday dialysis schedule, hypertension, type 2 diabetes, anemia of chronic disease, presenting for evaluation of bright red blood per rectum. The patient was in her usual state of health until last Sunday. Patient reports bright red blood per rectum that began Sunday. She reported a mixture of bright red and dark red blood present in her stool. She reports she was in this ER since Sunday and went back home via ambulance and was being transferred to a chair at assisted living when EMS noted a large amount of blood from her rectum and recommended return to the ER. Patient still denies any fever, chills, shortness of breath, abdominal pain, or chest pain. No lightheadedness or dizziness. No dysuria or hematuria. Patient does have a sacral ulcer which is being monitored by wound care/home health and she follows with [facility] surgery for this. Patient is not on any anticoagulation. Patient hospitalized for GI bleeding in Jun
--- NOTE | 2021-08-26 12:44 | PC.NURSE ---
Pt returned from dialysis report received from Analisa.
[2021-08-29 11:34] LABS: Vitamin D 1,25 (OH)2 Total 21 pg/mL (18-72); Vitamin D2 1,25 (OH)2 <8 pg/mL; Vitamin D3 1,25 (OH)2 21 pg/mL
== END 2021-08-26 15:24 | disposition home health service (06) | DRG 377 ==
LOC: ANHED 14:04 → ANH3MEDSUR 14:19 → ANH2MED 15:12
PROVIDERS: Internal Medicine Nephrology; Physician Assistant; Admitting Provider Internal Medicine; Emergency Provider Emergency Medicine; PCP Internal Medicine; Visit Provider Internal Medicine
DX: K57.31 Diverticulosis of large intestine without perforation or abscess with bleeding (principal); L89.153 Pressure ulcer of sacral region, stage 3; N18.6 End stage renal disease; D62 Acute posthemorrhagic anemia; I13.2 Hypertensive heart and chronic kidney disease with heart failure and with stage 5 chronic kidney disease, or end stage renal disease; N25.81 Secondary hyperparathyroidism of renal origin; Z20.822 Contact with and (suspected) exposure to COVID-19; E11.22 Type 2 diabetes mellitus with diabetic chronic kidney disease; D63.1 Anemia in chronic kidney disease; I25.10 Atherosclerotic heart disease of native coronary artery without angina pectoris; M19.90 Unspecified osteoarthritis, unspecified site; I50.9 Heart failure, unspecified; E03.9 Hypothyroidism, unspecified; H35.30 Unspecified macular degeneration; E78.00 Pure hypercholesterolemia, unspecified; Z96.653 Presence of artificial knee joint, bilateral; I25.2 Old myocardial infarction; Z85.528 Personal history of other malignant neoplasm of kidney; Z90.49 Acquired absence of other specified parts of digestive tract; Z90.710 Acquired absence of both cervix and uterus; Z90.5 Acquired absence of kidney; Z95.5 Presence of coronary angioplasty implant and graft; Z87.891 Personal history of nicotine dependence; Z99.2 Dependence on renal dialysis
CPT/HCPCS: 36415; 71045; 74176; 80048; 80053; 80069; 82652; 82728; 83540; 83550; 84443; 85014; 85018; 85025; 85027; 85055; 85610; 85730; 86706; 86850; 86900; 86901; 87340; 87426; 97161; 97165; 99284; 99285; A9270; C9803; G0257; G0378; J1756; J7030

== ENCOUNTER 2021-10-22 10:34 | Emergency (ER) | payer MEDICARE, OTHER, SELFPAY ==
--- NOTE | ~2021-10-22 | XR_ITS ---
EXAMINATION: XR sacrum coccyx min 2V DATE: 10/22/2021 11:32 INDICATION: Sacral wound. TECHNIQUE: 4 views of the sacrum and coccyx were obtained. COMPARISON: CT abdomen and pelvis 08/23/2021 FINDINGS: Bone alignment is normal. No fracture. There is moderate lumbar spondylosis. There are embroidery cutter vish erosions of the sacrococcygeal region with chronic soft tissue gas. IMPRESSION: 1. Chronic sacral decubitus ulcer. Chronic erosions of the coccyx and distal sacrum may be surgical c hange or chronic osteomyelitis. Reviewed, dictated and finalized at location A. R CHEF IMPRESSION: 1. Chronic sacral decubitus ulcer. Chronic erosions of the coccyx and distal sa venkat may be surgical change or chronic osteomyelitis.
[2021-10-22 10:38] VITALS: BP 146/83; PULSE 76; RESP 16; TEMP 36.8; O2SAT 100
--- NOTE | 2021-10-22 10:57 | ED.WOUNDLAC ---
HPI - Wound/Laceration General Chief Complaint: Wound/Laceration <Kelsey Barron PA-C - Last Filed: 10/22/21 14:13> Stated Complaint: wound getting worse <INÉS Whittaker Last Filed: 10/22/21 14:13> Time Seen by Provider: 10/22/21 10:44 <Kelsey Barron PA-C - Last Filed: 10/22/21 14:13> Source: patient <INÉS Whittaker Last Filed: 10/22/21 14:13> Mode of arrival: EMS <INÉS Whittaker Last Filed: 10/22/21 14:13> Limitations: no limitations <INÉS Whittaker Last Filed: 10/22/21 14:13> History of Present Illness HPI narrative: This is a 81 year old female that presents to the ER for sacral decubitus ulcer. Present for years. Patient sees a doctor at [facility] for this. Has wound care who comes and dresses the wound 3 times a week. They came today and noted that the wound was bleeding a little bit more than usual. They sent her to the ER for further evaluation. Denies fevers. <Kelsey Barron PA-C - Last Filed: 10/22/21 14:13> Related Data Home Medications: Home Medications Medication Instructions Recorded Confirmed Mynephrocaps 1 cap PO DAILY 07/10/19 08/23/21 aspirin 81 mg PO DAILY 07/10/19 08/23/21 calcitriol 0.25 mcg PO 3XW 07/10/19 08/23/21 folic acid-B complex,C no.17 1 tablet PO DAILY 07/10/19 08/23/21 calcium acetate PO 01/12/20 gabapentin [Neurontin] 300 mg PO TID 01/12/20 08/23/21 pravastatin 40 mg PO HS 01/12/20 08/23/21 acetaminophen [Tylenol Arthritis 500 mg PO Q8H PRN 07/04/21 08/23/21 Pain] azelastine 1 spray INTRANASAL Q12H 07/04/21 08/23/21 nitroglycerin 0.4 mg SUBLINGUAL Q10-15M PRN MDD 3 11/15/21 01/04/22 <Kelsey Barron PA-C - Last Filed: 10/22/21 14:13> Allergies/Adverse Reactions: Allergies Allergy/AdvReac Type Severity Reaction Status Date / Time morphine AdvReac Unknown Itching Verified 07/05/21 09:50 <Kelsey Barron PA-C - Last Filed: 10/22/21 14:13> Review of Systems Review of Systems: CONSTITUTIONAL: Denies fever SKIN: Reports chronic wound <Kelsey Barron PA-C - Last Filed: 10/22/21 14:13> All systems reviewed & are unremarkable except as noted in HPI and below <Kelsey Barron PA-C - Last Filed: 10/22/21 14:13> [facility] Past Medical History Medical History: Medical History (Updated 10/22/21 @ 14:12 by Kelsey Barron PA-C) Acute on chronic blood loss anemia Anemia Arthritis CAD (coronary artery disease) Cataract, right eye CHF (congestive heart failure) Chronic anemia Dialysis patient Diverticular hemorrhage Diverticulitis DM (diabetes mellitus) ESRD (end stage renal disease) Fibroids GI bleed History of angina History of GI diverticular bleed History of heart attack History of rectal polyps Hypercholesteremia Hypertension Hypothyroid Macular degeneration lt Personal history of kidney cancer Rectal bleeding Renal disease Ulcer <Kelsey Barron PA-C - Last Filed: 10/22/21 14:13> Surgical History Surgical History: Surgical History History of appendectomy History of cataract surgery rt History of hysterectomy History of nephrectomy, left History of total bilateral knee replacement Hx of cardiac cath with stent placement <Kelsey Barron PA-C - Last Filed: 10/22/21 14:13> Family History Family History: Family History Mother Heart problem Diabetes mellitus <Kelsey Barron PA-C - Last Filed: 10/22/21 14:13> Social History Social History: Social History Smoking status: Former smoker Additional smoking assessment comments: quit 50 yrs ago Alcohol intake: current Drinks per week: 1 Substance use: never Substance use type: does not use Gender identity (if verbalized by the patient): Female Spiritual care concerns: No <Kelsey Barron PA-C
[2021-10-22 11:52] LABS: Basophils Percent Auto 0.6 % (0.2-1.2); Eosinophils Absolute Auto 0.1 K/mm3 (0-0.3); Eosinophils Percent Auto 2.7 % (0-4.4); Hematocrit 33.7 % (37.0-47.0); Hemoglobin 10.2 g/dL (12.0-15.0); Immature Granulocyte Absolute 0.01 K/mm3 (0.00-0.031); Immature Granulocyte Percent A 0.2 % (0-0.5); Lymphocytes Absolute Auto 1.11 K/mm3 (0.9-3.2); Lymphocytes Percent Auto 22.9 % (18.3-44.2); Mean Corpuscular HGB Conc 30.3 g/dl (32-36); Mean Corpuscular Hemoglobin 26.9 pg (26-34); Mean Corpuscular Volume 88.9 fl (80-100); Mean Platelet Volume 11.4 fl (7.4-10.4); Monocytes Absolute Auto 0.9 K/mm3 (0.1-0.6); Monocytes Percent Auto 19.2 % (2.6-8.5); Neutrophils Absolute Auto 2.6 K/mm3 (1.3-6.7); Neutrophils Percent Auto 54.4 % (45.5-73.1); Nucleated Red Blood Cells Perc 0.4 % (0.0-0.2); Platelet Count Result 165 k/mm3 (150-375); Red Blood Count 3.79 M/mm3 (4.2-5.4); Red Cell Distribution Width 16.1 % (11.5-14.5); White Blood Count 4.9 K/mm3 (4.5-10.0)
[2021-10-22 12:08] LABS: Anion Gap 10 mmol/L (8-16); Blood Urea Nitrogen 24 mg/dL (7-17); CRP 5.3 mg/dL (<1.0); Calcium 7.1 mg/dL (8.4-10.2); Carbon Dioxide 27 mmol/L (22-30); Chloride 98 mmol/L (98-107); Estimated CRCL calculation 12 ml/min; Estimated Glomerular Filt Rate 12; Glucose 103 mg/dL (65-110); Potassium 3.9 mmol/L (3.4-5.0); Sodium 135 mmol/L (137-145)
[2021-10-22 12:27] LABS: Erythrocyte Sedimentation Rate 39 mm/hr (0-20)
== END 2021-10-22 17:00 ==
PROVIDERS: Physician Assistant; Emergency Provider General Practice; PCP Internal Medicine
DX: L89.153 Pressure ulcer of sacral region, stage 3 (principal); I25.10 Atherosclerotic heart disease of native coronary artery without angina pectoris; E11.22 Type 2 diabetes mellitus with diabetic chronic kidney disease; I13.2 Hypertensive heart and chronic kidney disease with heart failure and with stage 5 chronic kidney disease, or end stage renal disease; N18.6 End stage renal disease; I50.9 Heart failure, unspecified; D62 Acute posthemorrhagic anemia; E78.00 Pure hypercholesterolemia, unspecified; E03.9 Hypothyroidism, unspecified; H35.30 Unspecified macular degeneration; M19.90 Unspecified osteoarthritis, unspecified site; Z79.82 Long term (current) use of aspirin; Z99.2 Dependence on renal dialysis; I25.2 Old myocardial infarction; Z87.19 Personal history of other diseases of the digestive system; Z85.528 Personal history of other malignant neoplasm of kidney; Z96.653 Presence of artificial knee joint, bilateral; Z90.5 Acquired absence of kidney; Z98.41 Cataract extraction status, right eye; Z95.5 Presence of coronary angioplasty implant and graft; Z87.891 Personal history of nicotine dependence
CPT/HCPCS: 36415; 72220; 80048; 85025; 85652; 86140; 87070; 87205; 99283